=== PATIENT | female | born 1985 | race Caucasian/White ===

== ENCOUNTER → 2017-11-28 14:54 | Outpatient (CLI) | payer BC, SELFPAY ==
--- NOTE | 2017-11-28 15:03 | XR_ITS ---
EXAM: XR lumbar spine min 4V HISTORY: ITS.REASON: PARESTHESIA BILAT LEGS ORDERING PHYSICIAN: Abel Sanchez MD PATIENT AGE: 32 years COMPARISON: None FINDINGS: Normal alignment. No fracture or dislocation. No lytic or blastic change. No significant degenerative change. The disc spaces are preserved. IMPRESSION: Negative lumbar spine
== END ==
PROVIDERS: PCP Family Medicine; Visit Provider Family Medicine
DX: R20.2 Paresthesia of skin (principal)
CPT/HCPCS: 72110

== ENCOUNTER 2020-05-09 11:54 | Emergency (ER) | payer BC, SELFPAY ==
[2020-05-09 11:55] VITALS: BP 129/68; PULSE 97; RESP 18; TEMP 36.6; O2SAT 97; BMI 24.2
--- NOTE | 2020-05-09 12:40 | PC.NURSE ---
cleaned pts left elbow for the dr to stitch it
--- NOTE | 2020-05-09 12:50 | HMH.EDWNDL ---
ED Disposition Clinical Impression: Laceration Disposition: Home, Self-Care Condition on Discharge: Good Instructions: DI for Laceration Repair Referrals: Provider,Referral, [Primary Care Provider] - - Critical Care Critical Care Time: No Attestation: On 05/09/20, the high probability of a clinically significant, sudden or life threatening deterioration of the following system(s) required my full and direct attention, intervention and personal management. The time I documented below is in addition to time spent performing reported procedures but includes the following listed in this critical care notation. Medical Decision Making - Medical Records Medical records reviewed: Yes: I reviewed the patient's medical records. - Louie Inquiry Pt receiving controlled substance: No Vital Signs: 05/09/20 11:55 Temperature 97.9 F Temperature Source Oral Pulse Rate [Right Radial] 97 H Respiratory Rate 18 Blood Pressure [Right Arm] 129/68 Blood Pressure Mean [Right Arm] 88 Blood Pressure Source [Right Arm] Automatic Cuff Blood Pressure Position [Right Arm] Sitting 02 Sat by Pulse Oximetry 97 Oxygen Delivery Method Room Air - Lab Data Lab results reviewed: Yes: I reviewed the patient's lab results. Wound/Laceration HPI - General Chief Complaint: Wound/Laceration Stated Complaint: Stitches Time Seen by Provider: 05/09/20 12:51 Mode of Arrival: Ambulatory Source of Information: Patient Limitations: No Limitations Description of Symptoms (Recalled from ER Triage Doc. by RN): PT PRESENTS WITH LAC TO LT ELBOW. PT REPORTS THAT SHE FELL INTO HER GLASS CABINET - History of Present Illness HPI narrative: 35-year-old female cut her elbow on the corner of a cabinet. This took place just prior to arrival.Patient denies any recent cough or shortness of breath, patient denies any sore throat or headache, patient denies any loss of taste or smell, patient denies any malaise or fatigue, patient denies any abdominal pain nausea vomiting or diarrhea. [facility] History - Hepatitis A Screen Drug use history?: No High risk sexual behaviors?: No History of sexually transmitted infection?: No Currently employed?: No Childcare worker?: No Do you have indoor plumbing?: Yes Do you have electricity?: Yes Attestation statement:: This patient has been screened for Hepatitis A risk factors. I have reviewed the patient's past medical history: Yes Medical History: Denies:: Diabetes Mellitus Type 1, Diabetes Mellitus Type 2 - Social History Smoking Status: Current every day smoker Tobacco Type: cigarettes # Packs/Day (cigarettes): 1 Alcohol Intake: current Alcohol Intake Frequency:: holidays/special occasions only Occupational Status: other ROS Obtained: Yes All systems reviewed & no additional complaints - Constitutional Constitutional: Reports system reviewed and no additional complaints, except as docu - Eyes Eyes: Reports system reviewed and no additional complaints, except as docu - ENT Ears, Nose, Mouth, and Throat: Reports system reviewed and no additional complaints, except as docu - Cardiovascular Cardiovascular: Reports system reviewed and no additional complaints, except as docu - Respiratory Respiratory: Yes system reviewed and no additional complaints, except as docu - Gastrointestinal Gastrointestingal: Reports: system reviewed and no additional complaints, except as docu - Genitourinary Male Genitourinary: Reports system reviewed and no additional complaints, except as docu Female Genitourinary: Reports system reviewed and no additional complaints, except as docu - Musculoskeletal Musculoskeletal: Reports system reviewed and no additional complaints, except as docu - Integumentary/Breasts Skin/Breast: Reports system reviewed and no additional complaints, except as docu - Neurologic Neurologic: Reports system reviewed and no additional complaints, except as docu - Endocrine Endocrine: Re
[2020-05-09 13:29] VITALS: BP 112/74; PULSE 78; RESP 16; TEMP 36.6; O2SAT 98
== END 2020-05-09 13:30 | disposition home or self-care (01) ==
PROVIDERS: Emergency Provider Family Medicine
DX: S51.012A Laceration without foreign body of left elbow, initial encounter (principal); W01.190A Fall on same level from slipping, tripping and stumbling with subsequent striking against furniture, initial encounter; Y92.019 Unspecified place in single-family (private) house as the place of occurrence of the external cause
CPT/HCPCS: 12002; 99282

== ENCOUNTER 2020-07-08 16:43 | Emergency (ER) | payer BC, SELFPAY ==
[2020-07-08 16:52] VITALS: BP 124/70; PULSE 83; RESP 18; TEMP 36.8; O2SAT 99; BMI 24.2
[2020-07-08 17:03] VITALS: BP 124/70; PULSE 83; RESP 18; TEMP 36.8; O2SAT 99; BMI 24.0
--- NOTE | 2020-07-08 17:04 | HMH.EDUTC ---
[facility] [place]ression: Strep [place] Disposition: Home, Self-Care Condition on Discharge: Good Instructions: Strep Throat (Alternative Therapy), Strep Throat, DI for Strep Throat, Amoxicillin Additional Instructions: *Monitor Temp, Over the counter Motrin or Tylenol as directed/as needed Tylenol every 4 hours and Motrin every 6 hours (as long as your family doctor has told you that you can take it) for fever or pain. and straight to ER if unable to lower temp less than 101.0 after medication given *Warm salt water gargles may help to soothe the throat *Throat Lozenges *Warm fluids like tea with honey may help to soothe the throat *Sleep elevated *Humidifier/Vaporizer *If you did not take Penicillin shot or was unable to, start taking antibiotic immediately and make sure that you take it for the FULL length of time although you should start to feel better in 24-48 hours *change toothbrush and toothpaste 24-48 hours after starting to take antibiotics so you do not reinfect yourself Monitor Temp. Tylenol and/or Ibuprofen as needed. ER if fever is no less than 101 despite alternating Tylenol and Ibuprofen * Encourage fluids, water, Gatorade, powerade, pedialyte if /toddler/or child *Cold fluids, popsicles and ice cream may feel good on his throat Follow up IMMEDIATELY for new or worsening symptoms or no Noticeable improvement over the next 48-72 hours. 911 for difficulty breathing or swallowing Prescriptions: Amoxicillin [Amoxicillin 500mg Cap] 500 mg PO BID #20 cap Transmission Status: Sent to [facility] Fluticasone Propionate [Flonase 50mcg nasal spray 16gm] 1 - 2 spr NS DAILY #1 bottle Transmission Status: Sent to [facility] Referrals: PCP,No [Primary Care Provider] - As needed Time of Disposition: 17:13 Medical Decision Making - Louie Inquiry Pt receiving controlled substance: No Louie was queried for this patient: No Vital Signs: 07/08/20 16:52 07/08/20 17:03 Temperature 98.3 F 98.3 F Temperature Source Oral Oral Pulse Rate [Left Brachial] 83 83 Respiratory Rate 18 18 Blood Pressure [Left Arm] 124/70 124/70 Blood Pressure Mean [Left Arm] 88 88 Blood Pressure Source [Left Arm] Automatic Cuff Automatic Cuff Blood Pressure Position [Left Arm] Sitting Sitting 02 Sat by Pulse Oximetry 99 99 Oxygen Delivery Method Room Air Room Air - Lab Data Lab results reviewed: Yes: I reviewed the patient's lab results. Lab Results 07/08/20 17:05: Strep Scn Rapid [facility] Positive [place] [facility] [place] - General Stated complaint: Possible strep or tonsilitis Time Seen by Provider: 07/08/20 17:04 Mode of Arrival: Ambulatory Source of Information: Patient Limitations: No Limitations Description of Symptoms (Recalled from Triage Doc. by RN): PATIENT C/O RIGHT EAR PAIN AND SORE THROAT SINCE SATURDAY. DENIES FEVER OR ANY OTHER SYMPTOMS - History of Present Illness Provider Complaint: Patient states that she has been having sore throat and noticed that she had white blister like lesions all over the back of her throat States that she has had strep before and feels like it did when she had it before States that also she has had peritonsilar abscess also and was worried that she may have that again States that she has also been having pain and pressure like feeling in her right ear that has continued to get worse and worried that she may have an ear infection too - Related Data Previous Rx's Medication Instructions Recorded Amoxicillin [Amoxicillin 500mg 500 mg PO BID #20 cap 07/08/20 Cap] Fluticasone Propionate [Flonase 1 - 2 spr NS DAILY #1 bottle 07/08/20 50mcg nasal spray 16gm] Allergies Allergy/AdvReac Type Severity Reaction Status Date / Time No Known Allergies Allergy Verified 07/08/20 17:07 [facility] History - Hepatitis A Screen Attestation statement:: This patient has been screened for Hepatitis A risk factors. I have reviewed th
[2020-07-08 17:05] LABS: UTC Strep Screen (Rapid) Positive (Negative)
[2020-07-08 17:16] VITALS: BP 124/70; PULSE 83; RESP 18; TEMP 36.8; O2SAT 99
== END 2020-07-08 17:20 | disposition home or self-care (01) ==
PROVIDERS: Emergency Provider Nurse Practitioner
DX: J02.0 Streptococcal pharyngitis (principal); F17.210 Nicotine dependence, cigarettes, uncomplicated
CPT/HCPCS: 87880; 99201

== ENCOUNTER 2020-07-18 13:54 | Emergency (ER) | payer BC, SELFPAY ==
[2020-07-18 14:01] VITALS: BP 146/94; PULSE 95; RESP 17; TEMP 36.7; O2SAT 98; BMI 24.2
--- NOTE | 2020-07-18 14:24 | XR_ITS ---
PROCEDURE: XR WRIST LT MIN 3V CLINICAL INDICATION: FALL Posttraumatic pain COMPARISON: No exams were available for comparison FINDINGS: No fracture or dislocation. No lytic or blastic change. There is normal mineralization. The joint spaces are well-preserved. No significant degenerative/arthritic changes. No erosive changes evident. Other findings:None. IMPRESSION: No acute findings. Dictated by: Mahin Harp MD 07/18/2020 15:27 Mahin Harp MD in [place] 07/18/2020 15:27
[2020-07-18 14:28] VITALS: BP 146/94; PULSE 95; RESP 17; TEMP 36.7; O2SAT 98; BMI 24.0
--- NOTE | 2020-07-18 14:49 | HMH.EDUTC ---
[facility] Disposition Clinical Impression: Wrist sprain Qualifiers: Encounter type: initial encounter Laterality: left Qualified Code(s): S63.502A - Unspecified sprain of left wrist, initial encounter Disposition: Home, Self-Care Condition on Discharge: Good Instructions: How To Perform RICE (Rest, Ice, Compress, Elevate) Additional Instructions: *RICE, Rest the extremity, Ice 15-20 minutes 3-4 times daily, Compress- wear the rayshawn wrap as discussed as much as possible to help reduce swelling and pain, Elevate the extremity when at rest *Rayshawn wrap is for support and help control swelling, use it except in the shower. Be sure that is not to tight but not to loose either *Elevate when resting *Ibuprofen every 6-8 hours as needed for pain an inflammation. If need something more can take Tylenol in between doses of Ibuprofen to help Immediately follow up with your family doctor for new or worsening of symptoms, or no noticeable improvement over the next 3-5 days Referrals: PCP,No [Primary Care Provider] - As needed Nicolette Andrade MD [Physician] - As needed (Call office for appointment) Time of Disposition: 15:35 Medical Decision Making - Louie Inquiry Pt receiving controlled substance: No Louie was queried for this patient: No Vital Signs: 07/18/20 14:01 07/18/20 14:28 07/18/20 15:36 Temperature 98.1 F 98.1 F 98.1 F Temperature Source Oral Oral Pulse Rate 95 H Pulse Rate [Right Radial] 95 H 95 H Respiratory Rate 17 17 17 Blood Pressure 146/94 H Blood Pressure [Right Arm] 146/94 H 146/94 H Blood Pressure Mean [Right Arm] 111 111 Blood Pressure Source [Right Arm] Automatic Cuff Arterial Line Blood Pressure Position [Right Arm] Sitting 02 Sat by Pulse Oximetry 98 98 Oxygen Delivery Method Room Air Room Air Orders (Tests/Meds): ED MEDICATIONS Discontinued Medications Generic Name Dose Route Start Last Admin Trade Name Freq PRN Reason Stop Dose Admin Ibuprofen 800 mg 07/18/20 14:58 07/18/20 14:59 Motrin 400mg Tablet PO 07/18/20 14:59 800 mg ONCE ONE Administration - Radiology Data #1 Image(s): Wrist Image Reviewed: Yes I reviewed the patient's radiology image Preliminary Findings: No Fracture Seen [facility] HPI - General Stated complaint: ao 07/16/20 fell down stairs Time Seen by Provider: 07/18/20 14:49 Mode of Arrival: Ambulatory Source of Information: Patient Limitations: No Limitations Description of Symptoms (Recalled from Triage Doc. by RN): PATIENT C/O INJURY TO LEFT WRIST AFTER FALLING DOWN STAIRS HEENT Symptoms (Recalled from RN notes): No Resp Symptoms (Recalled from RN notes): No Skin Symptoms (Recalled from RN notes): No MS Symptoms (Recalled from RN notes): Yes Functional Status (Recalled from RN notes): WNL - History of Present Illness Provider Complaint: Paitent states that she was walking down her stairs 2 days ago when she slipped and fell States that she stuck out her hand to try to catch herself states that ever since she has had some swelling and pain in her left wrist area States that she has been taking over the counter Tylenol but hasnt helped much and today it was still hurting so she came in to get it checked - Related Data Allergies Allergy/AdvReac Type Severity Reaction Status Date / Time No Known Allergies Allergy Verified 07/08/20 17:07 - Worker's Comp Is this a Worker's Comp case?: No [facility] History - Hepatitis A Screen Drug use history?: No High risk sexual behaviors?: No History of sexually transmitted infection?: No Currently employed?: No Childcare worker?: No Do you have indoor plumbing?: Yes Do you have electricity?: Yes Attestation statement:: This patient has been screened for Hepatitis A risk factors. I have reviewed the patient's past medical history: Yes Medical History: Denies:: Diabetes Mellitus Type 1, Diabetes Mellitus Type 2 - Social History Smoking Status: Current every day smoker Tobacco Type: cigarett
[2020-07-18 15:36] VITALS: BP 146/94; PULSE 95; RESP 17; TEMP 36.7; O2SAT 98
== END 2020-07-18 15:40 | disposition home or self-care (01) ==
PROVIDERS: Emergency Provider Nurse Practitioner
DX: S63.502A Unspecified sprain of left wrist, initial encounter (principal); W10.9XXA Fall (on) (from) unspecified stairs and steps, initial encounter; Y92.019 Unspecified place in single-family (private) house as the place of occurrence of the external cause; F17.210 Nicotine dependence, cigarettes, uncomplicated
CPT/HCPCS: 29125; 73110; 99202

== ENCOUNTER 2020-12-11 14:21 | Emergency (ER) | payer BC, SELFPAY ==
[2020-12-11 14:25] VITALS: BP 124/88; PULSE 82; RESP 18; TEMP 37; O2SAT 98; BMI 25.2
[2020-12-11 14:57] LABS: UTC Influenza A Antigen Negative (Negative); UTC Influenza B Antigen Negative (Negative)
--- NOTE | 2020-12-11 15:05 | HMH.EDUTC ---
[facility] [place]: Exposure to COVID-19 virus Disposition: Home, Self-Care Condition on Discharge: Good Instructions: DI for COVID-19 (Suspected or Confirmed ), Coronavirus Disease 2019, Preventing the Spread of Coronavirus Discharge Instructions Additional Instructions: *Monitor Temp, Over the counter Motrin or Tylenol as directed/as needed Tylenol every 4 hours and Motrin every 6 hours (as long as your family doctor has told you that you can take it) for fever or pain. and straight to ER if unable to lower temp less than 101.0 after medication given *Warm salt water gargles may help to soothe the throat *Throat Lozenges *Warm fluids like tea with honey may help to soothe the throat *Sleep elevated *Humidifier/Vaporizer Follow up IMMEDIATELY for new or worsening symptoms or no Noticeable improvement over the next 48-72 hours. 911 for difficulty breathing or swallowing You were tested for today for COVID19 your test result should be back in the next 24-48 hours, you may call to the [facility] to see if your test results are back in the next 48 hours [phone] [facility] hours are 9am-9pm You was given a handout with instructions for Self Quarantine and Self isolation for while you wait on test results and what to do if they are positive If you are positive the Health Dept will be contacting you also Referrals: PCP,No [Primary Care Provider] - As needed Forms: Work/School Release Time of Disposition: 15:10 Medical Decision Making - Louie Inquiry Pt receiving controlled substance: No Louie was queried for this patient: No Vital Signs: 12/11/20 14:25 Temperature 98.6 F Temperature Source Oral Pulse Rate [Right Brachial] 82 Respiratory Rate 18 Blood Pressure [Right Arm] 124/88 Blood Pressure Mean [Right Arm] 100 Blood Pressure Source [Right Arm] Automatic Cuff Blood Pressure Position [Right Arm] Sitting 02 Sat by Pulse Oximetry 98 Oxygen Delivery Method Room Air - Lab Data Lab results reviewed: Yes: I reviewed the patient's lab results. Lab Results 12/11/20 14:56: Influenza Type A Ag Negative, Influenza Type B Ag Negative Orders (Tests/Meds): ORDERS Category Date Time Status Covid-19 Nasal PCR ([facility]) Routine Lab 12/11/20 14:41 [place] [facility] [place] - General Stated complaint: exposure,symtoms Time Seen by Provider: 12/11/20 15:06 Mode of Arrival: Ambulatory Source of Information: Patient Limitations: No Limitations Description of Symptoms (Recalled from Triage Doc. by RN): COVID TEST D/T EXPOSURE. C/O FATIGUE X 3 DAYS HEENT Symptoms (Recalled from RN notes): No Resp Symptoms (Recalled from RN notes): No Skin Symptoms (Recalled from RN notes): No MS Symptoms (Recalled from RN notes): No Functional Status (Recalled from RN notes): WNL - History of Present Illness Provider Complaint: Patient states that she was around someone about a week ago that has tested positive for COVID State that for the last 3 days she has been having body aches, feeling tired and chills States that she has been sleeping alot and over all not feeling well so she wanted to come in and get tested - Related Data Allergies Allergy/AdvReac Type Severity Reaction Status Date / Time No Known Allergies Allergy Verified 07/08/20 17:07 - Worker's Comp Is this a Worker's Comp case?: No [facility] History - Hepatitis A Screen Drug use history?: No High risk sexual behaviors?: No History of sexually transmitted infection?: No Currently employed?: No Childcare worker?: No Do you have indoor plumbing?: Yes Do you have electricity?: Yes Attestation statement:: This patient has been screened for Hepatitis A risk factors. I have reviewed the patient's past medical history: Yes Medical History: Denies:: Diabetes Mellitus Type 1, Diabetes Mellitus Type 2 - Social History Smoking Status: Current every day smoker Tobacco Type: cigarettes # Packs/Day (cigarettes): 1 Alcohol Intake: never Alcohol Intake
[2020-12-11 15:08] VITALS: BP 124/88; PULSE 82; RESP 18; TEMP 37; O2SAT 98
--- NOTE | 2020-12-11 20:42 | PC.NURSE ---
Pt notified of positive covid test result
== END 2020-12-11 15:10 | disposition home or self-care (01) ==
PROVIDERS: Emergency Provider Nurse Practitioner
DX: U07.1 COVID-19 (principal); R53.1 Weakness; F17.210 Nicotine dependence, cigarettes, uncomplicated
CPT/HCPCS: 87804; 99202; G0463; U0003

== ENCOUNTER 2021-08-18 19:12 | Emergency (ER) | payer BC, SELFPAY ==
[2021-08-18 19:38] VITALS: BP 123/83; PULSE 93; RESP 21; TEMP 36.8; O2SAT 100; BMI 27.7
--- NOTE | 2021-08-18 19:45 | HMH.EDUTC ---
[facility] [place] Clinical Impression: Viral syndrome, Encounter for laboratory testing for COVID-19 virus Disposition: Home, Self-Care Condition on Discharge: Good Instructions: DI for COVID-19 (Suspected or Confirmed ), Preventing the Spread of Coronavirus Discharge Instructions Additional Instructions: *Monitor Temp, Over the counter Motrin or Tylenol as directed/as needed Tylenol every 4 hours and Motrin every 6 hours (as long as your family doctor has told you that you can take it) for fever or pain. and straight to ER if unable to lower temp less than 101.0 after medication given Follow up IMMEDIATELY for new or worsening symptoms or no Noticeable improvement over the next 48-72 hours. 911 for difficulty breathing or swallowing You were tested for today for COVID19 your test result should be back in the next 24-48 hours, you was given handout for instructions on how to [facility] to see your results if you have trouble logging on you may call for your results You was given a handout with instructions for Self Quarantine and Self isolation for while you wait on test results and what to do if they are positive If you are positive the Health Dept will be contacting you also Make sure to take your Vitamins Vit. C Vit D and Zinc if you can take them Referrals: Provider,Referral, MD [Primary Care Provider] - As needed Forms: Work/School Release Time of Disposition: 19:47 Medical Decision Making - Louie Inquiry Pt receiving controlled substance: No Louie was queried for this patient: No Vital Signs: 08/18/21 19:38 Temperature 98.2 F Temperature Source Oral Pulse Rate [Left] 93 H Respiratory Rate 21 Blood Pressure [Right Arm] 123/83 Blood Pressure Mean [Right Arm] 96 02 Sat by Pulse Oximetry 100 Orders (Tests/Meds): ORDERS Category Date Time Status Covid-19 Nasal PCR ([facility]) Routine Lab 08/18/21 19:24 Ordered [facility] [place] HPI - General Stated complaint: covid test, weak,CARVAJAL,cough, vomiting,runny nose Time Seen by Provider: 08/18/21 19:45 Mode of Arrival: Ambulatory Source of Information: Patient Limitations: No Limitations Description of Symptoms (Recalled from Triage Doc. by RN): PT C/O N/V AND FATIGUE SINCE THIS AM. HEENT Symptoms (Recalled from RN notes): No Resp Symptoms (Recalled from RN notes): No Skin Symptoms (Recalled from RN notes): No MS Symptoms (Recalled from RN notes): No Functional Status (Recalled from RN notes): FATIGUE - History of Present Illness Provider Complaint: Patient states that she hasnt felt well all day and just wanted to lay around States that she had N/V this morning but that is better,, chills and body aches States that she wanted to get tested for COVID due to this is the way she felt last time she had COVID - Related Data Allergies Allergy/AdvReac Type Severity Reaction Status Date / Time No Known Allergies Allergy Verified 07/08/20 17:07 - Worker's Comp Is this a Worker's Comp case?: No [facility] History - Hepatitis A Screen Drug use history?: No High risk sexual behaviors?: No History of sexually transmitted infection?: No Currently employed?: No Childcare worker?: No Do you have indoor plumbing?: Yes Do you have electricity?: Yes Attestation statement:: This patient has been screened for Hepatitis A risk factors. I have reviewed the patient's past medical history: Yes Medical History: Denies:: Diabetes Mellitus Type 1, Diabetes Mellitus Type 2 - Social History Smoking Status: Current every day smoker Tobacco Type: cigarettes # Packs/Day (cigarettes): 1 Alcohol Intake: never Alcohol Intake Frequency:: holidays/special occasions only Occupational Status: other ROS Obtained: Yes All systems reviewed & no additional complaints, Yes Systems reviewed as appropriate & no additional complaints - Constitutional Constitutional: Reports system reviewed and no additional complaints, except as docu, Reports body ache, Reports chills,
[2021-08-18 19:52] VITALS: BP 123/83; PULSE 93; RESP 21; TEMP 36.8
== END 2021-08-18 20:02 | disposition home or self-care (01) ==
PROVIDERS: Emergency Provider Nurse Practitioner
DX: B34.9 Viral infection, unspecified (principal); Z20.822 Contact with and (suspected) exposure to COVID-19
CPT/HCPCS: 99202; C9803; G0463; U0003; U0005

== ENCOUNTER 2021-12-12 08:26 | Emergency (ER) | payer BC, SELFPAY ==
[2021-12-12 08:34] VITALS: PULSE 126; RESP 17; O2SAT 97; BMI 24.2
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
[2021-12-12 08:52] VITALS: BP 0/0; PULSE 126; RESP 17; TEMP -17.7; TEMP 0; O2SAT 97
== END 2021-12-12 08:53 ==
PROVIDERS: Emergency Provider Emergency Medicine
DX: S60.512A Abrasion of left hand, initial encounter (principal); S00.531A Contusion of lip, initial encounter; Y04.0XXA Assault by unarmed brawl or fight, initial encounter; Y92.019 Unspecified place in single-family (private) house as the place of occurrence of the external cause; F17.210 Nicotine dependence, cigarettes, uncomplicated
CPT/HCPCS: 99282

== ENCOUNTER 2022-02-02 09:02 | Emergency (ER) | payer BC, SELFPAY ==
[2022-02-02 09:10] VITALS: BP 129/84; PULSE 99; RESP 20; TEMP 36.6; O2SAT 96; BMI 24.2
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
[2022-02-02 10:03] VITALS: BP 129/84; PULSE 99; RESP 20; TEMP 36.6; O2SAT 96
== END 2022-02-02 10:11 | disposition home or self-care (01) ==
PROVIDERS: Emergency Provider Physician Assistant
DX: N76.4 Abscess of vulva (principal); M54.50 Low back pain, unspecified; F17.210 Nicotine dependence, cigarettes, uncomplicated; Z79.899 Other long term (current) drug therapy
CPT/HCPCS: 96372; 99213; G0463; J0696

== ENCOUNTER 2022-08-21 09:14 | Emergency (ER) | payer BC, SELFPAY ==
[2022-08-21 09:24] VITALS: BP 122/84; PULSE 78; RESP 16; TEMP 36.7; O2SAT 100; BMI 24.2
--- NOTE | 2022-08-21 09:47 | EXP.UTC ---
Discharge Plan Disposition Patient Disposition: Home, Self-Care Condition: Good Prescriptions Prescriptions: New benzonatate [benzonatate] 100 mg capsule 100 mg PO TIDP PRN (Reason: Cough) Qty: 30 0RF methylprednisolone 4 mg Tablets,Dose Pack 4 mg PO DIRECTED Qty: 21 0RF cefdinir 300 mg capsule 300 mg PO BID Qty: 20 0RF No Action sulfamethoxazole-trimethoprim 1 EACH tablet 1 each PO BID 10 Days Qty: 20 0RF cephalexin 500 MG capsule 500 mg PO Q6H 10 Days Qty: 40 0RF fluconazole 150 MG tablet 150 mg PO DAILY 5 Days Qty: 5 0RF Rx Instructions: Take if yeast infection symptoms develop from antibiotics Referrals Follow up/Referrals: Provider,Referral, MD [Primary Care Provider] - See instructions Activity Restrictions/Add. Instructions Additional Instructions/Restrictions: Drink plenty of fluids. Take tylenol or ibuprofen for pain or fever. Take the medications as directed. Follow up with your regular doctor. GO TO THE ER FOR ANY WORSENING SYMPTOMS Clinical Impressions Clinical Impression: Pharyngitis, Otitis media Instructions Patient Instructions: Middle Ear Infection, DI for Pharyngitis/Tonsillopharyngitis -- Adult Discharge ED Provider: Jann Alicea [facility] General Stated complaint: pain in ears, trouble hearing Mode of Arrival: Ambulatory Source of Information: Patient Limitations: No Limitations Time Seen by Provider: 08/21/22 09:47 Description of Symptoms (Recalled from Triage Doc. by RN): pt comes in with c/o bilateral ear pain. symptoms began a few days ago but last night and this am symptoms have gotten worse. HEENT Symptoms (Recalled from RN notes): Yes Resp Symptoms (Recalled from RN notes): No Skin Symptoms (Recalled from RN notes): No MS Symptoms (Recalled from RN notes): No Functional Status (Recalled from RN notes): n/a History of Present Illness Provider Complaint: She states that for the past 2 days she has had sore throat and bilateral ear pain. Related Data Previous Rx's Medication Instructions Recorded cephalexin 500 mg capsule 500 mg PO Q6H 10 days #40 caps 02/02/22 fluconazole 150 mg tablet 150 mg PO DAILY 5 days #5 tabs 02/02/22 sulfamethoxazole 800 1 each PO BID 10 days #20 tabs 02/02/22 mg-trimethoprim 160 mg tablet benzonatate 100 mg capsule 100 mg PO TIDP PRN Cough #30 caps 08/21/22 cefdinir 300 mg capsule 300 mg PO BID #20 caps 08/21/22 methylprednisolone 4 mg tablets in 4 mg PO DIRECTED #21 tabs 08/21/22 a dose pack Allergies Allergy/AdvReac Type Severity Reaction Status Date / Time No Known Allergies Allergy Verified 08/21/22 09:26 Worker's Comp Is this a Worker's Comp case?: No PFSH PFSH Social History Smoking Status: Current every day smoker tobacco type: cigarettes packs per day: 1 alcohol intake: current current occupational status: other Travel in the last 8 weeks: None ROS Obtained: Yes All systems reviewed & no additional complaints except as documented Constitutional Constitutional: Denies chills, Reports fever(s) and Reports poor appetite Eyes Eyes: Denies eye discharge ENT Ears, Nose, Mouth, and Throat: Denies ear discharge, Reports otalgia, Denies hearing loss, Denies sinus pain and Reports sore throat Cardiovascular Cardiovascular: Denies chest pain and Denies dyspnea Respiratory Respiratory: Denies chest congestion, Reports cough and Denies dyspnea Gastrointestinal Gastrointestingal: Denies abdominal pain, diarrhea, nausea or vomiting Musculoskeletal Musculoskeletal: Denies arthralgias Integumentary/Breasts Skin/Breast: Denies rash Physical Exam General General appearance: alert and in no apparent distress Head Head exam: atraumatic, normocephalic and normal inspection Eye Eye exam: Present normal appearance, PERRL and EOMI ENT ENT exam: Present mucous membranes moist and normal external ear exam Expanded ENT E
[2022-08-21 10:09] LABS: UTC Strep Screen (Rapid) Negative (Negative)
[2022-08-21 10:21] VITALS: BP 122/84; PULSE 78; RESP 16; TEMP 36.7
== END 2022-08-21 10:23 | disposition home or self-care (01) ==
PROVIDERS: Emergency Provider Nurse Practitioner Family
DX: H66.90 Otitis media, unspecified, unspecified ear (principal); J02.9 Acute pharyngitis, unspecified
CPT/HCPCS: 87880; 99212; G0463

== ENCOUNTER 2022-12-16 00:49 | Emergency (ER) | payer BC, SELFPAY ==
[2022-12-16 00:51] VITALS: BP 134/95; PULSE 115; RESP 18; TEMP 36.6; O2SAT 99; BMI 24.2
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
[2022-12-16 01:56] VITALS: BP 130/92; PULSE 105; RESP 18; TEMP 36.6; O2SAT 99
[2022-12-16 02:10] LABS: Urine Pregnancy, HCG Qual. Negative (Negative)
--- NOTE | 2022-12-16 02:33 | PC.NURSE ---
Addendum entered by Cristy Mejia RN 12/16/22 02:34: is aware. Original Note: pt refused to have lab draw. She did agree to a urine test so she could have a CT scan.
== END 2022-12-16 03:00 | disposition home or self-care (01) ==
PROVIDERS: Emergency Provider Emergency Medicine
DX: F17.210 Nicotine dependence, cigarettes, uncomplicated; S00.83XA Contusion of other part of head, initial encounter; Y04.0XXA Assault by unarmed brawl or fight, initial encounter
CPT/HCPCS: 70486; 81025; 99284

== ENCOUNTER 2023-01-14 20:17 | Observation (INO) | payer BC, SELFPAY ==
[2023-01-14 20:18] VITALS: BP 100/72; PULSE 88; RESP 16; TEMP 36.8; O2SAT 100; BMI 24.2
[2023-01-14 20:53] VITALS: BP 160/87; PULSE 84; RESP 16; O2SAT 100
--- NOTE | 2023-01-14 20:59 | HMH.EDABDPAI ---
Discharge Plan Disposition Patient Disposition: Admitted As Inpatient Chief Complaint: Abdominal Pain Clinical Impressions Clinical Impression: Pancreatitis Discharge ED Provider: Td (TIGIST)Lorenzo Abdominal Pain HPI General Chief Complaint: Abdominal Pain Stated Complaint: Sever stomach pain Time Seen by Provider: 01/14/23 20:59 Mode of Arrival: Ambulatory Source of Information: Patient and Medical Record Limitations: No Limitations Description of Symptoms (Recalled from ER Triage Doc. by RN): Pt c/o vomiting and epigastric pain that started around 3pm today. denies any diarrhea or any other symptoms History of Present Illness HPI narrative: acute onset of abd pain with nausea complaint: abdominal pain Onset (ago): hour(s) Consistency: constant Location: epigastric Severity: severe Associated symptoms: nausea and vomiting Related Data Previous Rx's Medication Instructions Recorded cephalexin 500 mg capsule 500 mg PO Q6H 10 days #40 caps 02/02/22 fluconazole 150 mg tablet 150 mg PO DAILY 5 days #5 tabs 02/02/22 sulfamethoxazole 800 1 each PO BID 10 days #20 tabs 02/02/22 mg-trimethoprim 160 mg tablet benzonatate 100 mg capsule 100 mg PO TIDP PRN Cough #30 caps 08/21/22 cefdinir 300 mg capsule 300 mg PO BID #20 caps 08/21/22 methylprednisolone 4 mg tablets in 4 mg PO DIRECTED #21 tabs 08/21/22 a dose pack Allergies Allergy/AdvReac Type Severity Reaction Status Date / Time No Known Allergies Allergy Verified 08/21/22 09:26 [facility] Disclaimer: The information contained in this section may have been updated after the patient was seen, as this information can be updated by other users. Social History Smoking Status: Current every day smoker tobacco type: cigarettes packs per day: 1 alcohol intake: current current occupational status: other Travel in the last 8 weeks: None ROS Obtained: Yes All systems reviewed & no additional complaints except as documented Physical Exam General General appearance: alert Head Head exam: normocephalic Eye Eye exam: Present PERRL and EOMI ENT ENT exam: Present mucous membranes moist Neck Neck exam: Present trachea midline Respiratory Respiratory exam: Absent respiratory distress Cardiovascular Cardiovascular exam: Present regular rate Abdominal Exam Abdominal exam: Present soft, tenderness and Mejia's sign; Absent guarding or rebound Abdominal tenderness: Present RUQ, epigastrium and moderate Extremities Exam Extremities exam: Present full ROM Neurological Exam Neurological exam: Present alert, oriented X3 and CN II-XII intact; Absent motor sensory deficit Skin Skin exam: Absent rash Medical Decision Making Medical Records Medical records reviewed: Yes I reviewed the patient's medical records. Louie Inquiry Pt receiving controlled substance: No Vital Signs: 01/14/23 20:18 01/14/23 20:53 01/14/23 22:14 Temperature 98.3 F Temperature Source Oral Pulse Rate 84 75 Pulse Rate [Right] 88 Respiratory Rate 16 16 16 Blood Pressure 160/87 H 138/98 H Blood Pressure [Right Arm] 100/72 L Blood Pressure Mean [Right Arm] 81 Blood Pressure Source Automatic Cuff Automatic Cuff Blood Pressure Source [Right Arm] Automatic Cuff Blood Pressure Position Sitting Sitting Blood Pressure Position [Right Arm] Sitting 02 Sat by Pulse Oximetry 100 100 100 Oxygen Delivery Method Room Air Room Air Room Air Lab Data Lab results reviewed: Yes I reviewed the patient's lab results. Lab Results 01/14/23 20:39: WBC 8.0, RBC 4.29, Hgb 15.7, Hct 46.4, MCV 108.2 H, MCH 36.6 H, MCHC 33.8, RDW 15.4, Plt Count 322, MPV 8.8, Neut % (Auto) 68.8, Lymph % (Auto) 21.3, [place] % (Auto) 6.7, Eos % (Auto) 1.2, Baso % (Auto) 1.9, Neut # (Auto) 5.5, Lymph # (Auto) 1.7, [place] # (Auto) 0.5, Eos # (Auto) 0.1, Baso # (Auto) 0.2 01/14/23 20:39: Sodium 135 L, Potassium 3.5, Chloride 103, Carbon Dioxide 23,
[2023-01-14 21:08] LABS: Chloride 103 mmol/L (98-107); Potassium 3.5 mmoL/L (3.5-5.1); Sodium 135 mmol/L (136-145)
[2023-01-14 21:10] LABS: Amylase 161 U/L (30-110)
[2023-01-14 21:11] LABS: Alanine Aminotransferase 49 U/L (12-78); Albumin Level 4.4 g/dl (3.5-5.0); Albumin/Globulin Ratio 1.3 (1.1-1.8); Alkaline Phosphatase 145 U/L (38-126); Anion Gap 12.5 mEq/L (5-15); Aspartate Amino Transferase 123 U/L (14-36); Bilirubin,Total 1.4 mg/dl (0.2-1.3); Blood Urea Nitrogen 9 mg/dl (7-17); Calcium 8.7 mg/dl (8.4-10.2); Carbon Dioxide 23 mmol/L (22.0-30.0); Creatinine Clearance Estimated 120 mL/min (50-200); Estimated Glomerular Filt Rate 95 ml/min (>60); GFR (African American) 115 ML/MIN (>60); Globulin 3.4 g/dL (1.3-3.2); Glucose 114 mg/dl (74-100); HCG Qualitative, Serum Negative (Negative); Total Protein,Serum 7.8 g/dl (6.3-8.2)
[2023-01-14 21:12] LABS: Lipase 692 U/L (23-300)
[2023-01-14 21:13] LABS: Basophils # 0.2 K/mm3 (0-0.2); Basophils % 1.9 % (0.1-2.0); Eosinophils # 0.1 K/mm3 (0.0-0.4); Eosinophils % 1.2 % (0.1-12.0); Hematocrit 46.4 % (37.0-47.0); Hemoglobin 15.7 g/dL (12.2-16.2); Lymphocytes # 1.7 K/mm3 (0.7-4.5); Lymphocytes % 21.3 % (10-50); Mean Corpuscular HGB Conc 33.8 g/dL (31.8-35.4); Mean Corpuscular Hemoglobin 36.6 pg (27.0-31.2); Mean Corpuscular Volume 108.2 fl (81-99); Mean Platelet Volume 8.8 fl (7.4-10.4); Monocytes # 0.5 K/mm3 (0.1-1.0); Monocytes % 6.7 % (1.7-9.3); Neutrophils # 5.5 K/mm3 (1.8-7.8); Neutrophils % 68.8 % (37.0-80.0); Platelet Count 322 K/mm3 (142-424); Red Blood Count 4.29 M/mm3 (4.20-5.40); Red Cell Distribution Width 15.4 % (11.5-17.5)
--- NOTE | 2023-01-14 21:14 | CT_ITS ---
PROCEDURE INFORMATION: Exam: CT Abdomen And Pelvis With Contrast Exam date and time: 01/14/2023 9:27 PM Age: 37 years old Clinical indication: Abdominal pain; Generalized; Additional info: Abd pain TECHNIQUE: Imaging protocol: Computed tomography of the abdomen and pelvis with contrast. Radiation optimization: All CT scans at this facility use at least one of these dose optimization techniques: automated exposure control; mA and/or kV adjustment per patient size (includes targeted exams where dose is matched to clinical indication); or iterative reconstruction. Contrast material: ISOVUE; Contrast volume: 75 ml; Contrast route: IV; REPORTING DATA: Count of CT and Cardiac NM exams in prior 12 months: This patient has received [address] and 0 known cardiac nuclear medicine studies in the 12 months prior to the current study. COMPARISON: CR [id number] XR lumbar spine min 4V 11/28/2017 3:18 PM FINDINGS: Liver: The liver is diffusely fatty in appearance. No focal hepatic abnormality evident. Gallbladder and bile ducts: Normal. No calcified stones. No ductal dilation. Pancreas: There is edema of the pancreatic head with small amount of adjacent fluid. No loculated peripancreatic fluid collection seen. Pancreatic enhancement appears normal. Spleen: Normal. No splenomegaly. Adrenal glands: Normal. No mass. Kidneys and ureters: Normal. No hydronephrosis. Stomach and bowel: Unremarkable. No obstruction. No mucosal thickening. Appendix: No evidence of appendicitis. Intraperitoneal space: Unremarkable. No free air. No significant fluid collection. Vasculature: Unremarkable. No abdominal aortic aneurysm. Lymph nodes: Unremarkable. No enlarged lymph nodes. Urinary bladder: Unremarkable as visualized. Reproductive: Unremarkable as visualized. Bones/joints: Unremarkable. No acute fracture. Soft tissues: There is a small fat containing umbilical hernia as well as a small midline ventral hernia above the umbilicus, also only containing fat. IMPRESSION: Findings of uncomplicated acute pancreatitis involving the pancreatic head. Fatty liver also noted.
--- NOTE | 2023-01-14 21:22 | PC.NURSE ---
Dr Appiah notified of critical lipase
--- NOTE | 2023-01-14 21:23 | PC.NURSE ---
pt to ct scan
--- NOTE | 2023-01-14 21:36 | PC.NURSE ---
Pt returned from CT scan. pt was able to provide urine sample at this time.
--- NOTE | 2023-01-14 21:42 | PC.NURSE ---
Updated pt and SO on POC and that we were waiting on CT results. No other needs at this time
--- NOTE | 2023-01-14 22:05 | PC.NURSE ---
Pt confirmed she has no family doctor. Dr. Appiah s/w Giuseppe Garza APRN for admission
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
[2023-01-14 22:12] LABS: Microscopic, Urine URINE MICROSCOPIC (MICROSCOPIC)
[2023-01-14 22:14] VITALS: BP 138/98; PULSE 75; RESP 16; O2SAT 100
[2023-01-14 22:14] LABS: Coronavirus 19, PCR Not Detected (NotDetected); Influenza A, PCR Not Detected (NotDetected); Influenza B, PCR Not Detected (NotDetected)
--- NOTE | 2023-01-14 22:14 | PC.NURSE ---
Hospitalist at bedside seeing patient
[2023-01-14 22:15] LABS: Chol/HDL Ratio 3.7 (1-3.5); Cholesterol 205 mg/dl (140-200); HDL Cholesterol 55 mg/dl (40-60); Triglycerides 247 mg/dl (30-150); VLDL Cholesterol 49 mg/dL (0-40)
[2023-01-14 22:15] LABS: Appearance,Urine CLEAR (Clear); Bilirubin,Urine Negative (Negative); Blood, Urine Negative (Negative); Glucose,Urine (UA) Negative (Negative); Ketones,Urine 2+ (Negative); Leukocyte Esterase,Urine Negative (Negative); Nitrate,Urine Negative (Negative); Protein,Urine TRACE (Negative); Specific Gravity, Urine 1.015 (1.005-1.030)
[2023-01-14 22:17] LABS: Color,Urine Dark Yellow (Yellow)
--- NOTE | 2023-01-14 22:26 | EXP.HP ---
History of Present Illness *Admission Date: 01/14/23 *Reason for visit:: Nausea, vomiting, abdominal Pain *History of present illness: Ms. Madrigal is a 37-year-old female with a past medical history of Hepatitis C, history of IVDU with opioids, Chronic Tobacco use and chronic alcohol use. She presents to [facility] due to a week history of vomiting on and off associated with severe upper quadrant and back pain today associated with intense vomiting. In the ER, the patient underwent a serum HCG that was negative, CT of the abdomen and pelvis that showed edema around the head of the pancreas and a small amount of adjacent fluid, WBC was normal at 8.0, Lipase was elevated at 692, Total Bili was 1.4 and AST was 123. The patient admits to drinking vodka and beers around 4 times weekly she reports a pint may last her 1 week. She denies any history of DT's with cessation. The patient will be admitted with initial impression: Acute Pancreatitis, she will be made NPO, given IV fluids, antiemetic and analgesics. US of the RUQ will be ordered for the am and lipase will be trended. The plan of care was discussed with the patient and her significant other on admission. Both verbalized understanding and agreement with the plan of care. [facility] Disclaimer: The information contained in this section may have been updated after the patient was seen, as this information can be updated by other users. Medical History AA (alcohol abuse) Hepatitis C IVDU (intravenous drug user) Social History (Updated 01/14/23 @ 23:43 by Justen Humphries RN) Smoking Status: Current every day smoker tobacco type: cigarettes packs per day: 1 alcohol intake: current current occupational status: other Travel in the last 8 weeks: None Review of Systems Review of Systems Review of systems:: pertinent systems reviewed and negative unless documented below Constitutional Constitutional: Reports system reviewed and no additional complaints, except as documented Eyes Eyes: Reports system reviewed and no additional complaints, except as documented ENT Ears, Nose, Mouth, and Throat: Reports system reviewed and no additional complaints, except as documented *Cardiovascular Cardiovascular: Reports system reviewed and no additional complaints, except as documented *Respiratory Respiratory: Reports system reviewed and no additional complaints, except as documented *Gastrointestinal Gastrointestinal: Reports abdominal pain, Reports heartburn, Reports nausea and Reports vomiting *Genitourinary Genitourinary: Reports system reviewed and no additional complaints, except as documented *Musculoskeletal Musculoskeletal: Reports system reviewed and no additional complaints, except as documented Integumentary/Breasts Skin/Breast: Reports system reviewed and no additional complaints, except as documented *Neurologic Neurologic: Reports system reviewed and no additional complaints, except as documented Psychiatric Psychiatric: Reports system reviewed and no additional complaints, except as documented Endocrine Endocrine: Reports system reviewed and no additional complaints, except as documented Hematologic/Lymphatic Hematologic/Lymphatic: Reports system reviewed and no additional complaints, except as documented Allergic/Immunologic Allergic/Immunologic: Reports system reviewed and no additional complaints, except as documented Meds Home Medications and Allergies New Prescriptions to Start Prescriptions: Allergies Allergy/AdvReac Type Severity Reaction Status Date / Time No Known Allergies Allergy Verified 08/21/22 09:26 Exam Data for Last 24 hours Vital signs and Labs for Last 24 Hours: Temp Pulse Resp BP Pulse Ox 98.3 F 75 16 138/98 H 100 01/14/23 20:18 01/14/23 22:14 01/14/23 22:14 01/14/23 22:14 01/14/23 22:14 Laboratory Results - last 24 hr 01/14/23 20:39: WBC 8.0, RBC 4.29, Hgb 15.7, Hct 46.4, MCV 108.2 H, MCH
[2023-01-14 22:32] LABS: Direct LDL Cholesterol 119.09 mg/dL (100-129)
[2023-01-14 22:37] VITALS: BP 138/90; PULSE 67; RESP 16; TEMP 36.8; O2SAT 98
[2023-01-14 22:37] LABS: WBC,Urine Occasional #/hpf (0-3)
--- NOTE | 2023-01-14 22:40 | PC.NURSE ---
Report called at this time.
--- NOTE | 2023-01-14 22:43 | PC.NURSE ---
2210 patient admitted to [facility] with dx of pancreatitis to service of Dr. Cabrera.
--- NOTE | 2023-01-14 22:48 | PC.NURSE ---
pt arrived to floor at this time
[2023-01-14 22:50] LABS: Amphetamine/Metha Screen,Urine Negative ng/ml (<1000)
[2023-01-14 22:51] LABS: Barbiturates Screen,Urine Negative ng/ml (<200); Benzodiazepines Screen,Urine Negative ng/ml (<200)
[2023-01-14 22:52] LABS: Cannabinoid Screen,Urine Positive ng/ml (<50)
[2023-01-14 22:53] LABS: Cocaine Screen,Urine Negative ng/ml (<300); Methadone Screen,Urine Negative ng/ml (<300)
[2023-01-14 22:54] LABS: Opiate Screen,Urine Positive ng/ml (<300); Phencyclidine Screen,Urine Negative ng/ml (<25)
[2023-01-14 23:06] VITALS: BP 140/82; PULSE 67; RESP 18; TEMP 36.5; O2SAT 100; BMI 27.4
[2023-01-15] VITALS: BP 140/82; PULSE 67; RESP 18; TEMP 36.5; O2SAT 100
[2023-01-15 00:09] VITALS: O2SAT 98
[2023-01-15 04:00] VITALS: BP 141/93; PULSE 69; RESP 18; TEMP 37.1; O2SAT 99; BMI 27.3
--- NOTE | 2023-01-15 05:52 | PC.NURSE ---
Pt. aox4 and has had nausea and vomiting since 15:00 yesterday. She got one breakthrough dose of morphine and ibuprofen this am.
--- NOTE | 2023-01-15 06:48 | PC.NURSE ---
PT LEFT FLOOR AMA AT THIS TIME
--- NOTE | 2023-01-15 06:51 | PC.NURSE ---
Pt. decided to leave AMA after speaking to Giuseppe Herrera DNP and wasn't given permission to leave the floor to smoke.
--- NOTE | 2023-01-15 06:52 | EXP.DC.SUM ---
General Admission date:: 01/14/23 Discharge date: 01/15/23 HPI HPI HPI: Ms. Madrigal is a 37-year-old female with a past medical history of Hepatitis C, history of IVDU with opioids, Chronic Tobacco use and chronic alcohol use. She presents to [facility] due to a week history of vomiting on and off associated with severe upper quadrant and back pain today associated with intense vomiting. In the ER, the patient underwent a serum HCG that was negative, CT of the abdomen and pelvis that showed edema around the head of the pancreas and a small amount of adjacent fluid, WBC was normal at 8.0, Lipase was elevated at 692, Total Bili was 1.4 and AST was 123. The patient admits to drinking vodka and beers around 4 times weekly she reports a pint may last her 1 week. She denies any history of DT's with cessation. The patient will be admitted with initial impression: Acute Pancreatitis, she will be made NPO, given IV fluids, antiemetic and analgesics. US of the RUQ will be ordered for the am and lipase will be trended. The plan of care was discussed with the patient and her significant other on admission. Both verbalized understanding and agreement with the plan of care. Hospital Course Hospital Course Hospital Course: Ms. Madrigal is a 37-year-old female admitted to the facility on 01/14/23 due to acute abdominal pain, nausea, vomiting. Imaging and Labs were consistent with Acute Pancreatitis. The patient was admitted, given analgesics, antiemetics, fluids and made NPO. She has a history of chronic alcohol use, history of past IVDU and chronic tobacco use. She was informed of the need for cessation and given a NRT overnight. paleology teacher of 01/15 the patient unhooked herself from fluids and stated that she wanted to go outside and smoke. She was informed that it is a non-smoking campus and this was not allowed, despite trying to get the patient to stay, she decided to leave AMA. She was informed if her symptoms return or worsen to come back through an ER for evaluation. She verbalized understanding. Unable to round on patient as she left AMA. Discussed case with nurse practitioner. Agree with care during admission. Exam Data for Last 24 hours Vital signs and Labs for Last 24 Hours: Temp Pulse Resp BP Pulse Ox 98.7 F 69 18 141/93 H 99 01/15/23 04:00 01/15/23 04:00 01/15/23 04:00 01/15/23 04:00 01/15/23 04:00 Laboratory Results - last 24 hr 01/14/23 20:39: WBC 8.0, RBC 4.29, Hgb 15.7, Hct 46.4, MCV 108.2 H, MCH 36.6 H, MCHC 33.8, RDW 15.4, Plt Count 322, MPV 8.8, Neut % (Auto) 68.8, Lymph % (Auto) 21.3, [place] % (Auto) 6.7, Eos % (Auto) 1.2, Baso % (Auto) 1.9, Neut # (Auto) 5.5, Lymph # (Auto) 1.7, [place] # (Auto) 0.5, Eos # (Auto) 0.1, Baso # (Auto) 0.2 01/14/23 20:39: Sodium 135 L, Potassium 3.5, Chloride 103, Carbon Dioxide 23, Anion Gap 12.5, BUN 9, Creatinine 0.70, Estimated Creat Clear 120, Estimated GFR 95, Est GFR ( Amer) 115, Glucose 114 H, Calcium 8.7, Total Bilirubin 1.4 H, AST 123 H, ALT 49, Alkaline Phosphatase 145 H, Total Protein 7.8, Albumin 4.4, Globulin 3.4 H, Albumin/Globulin Ratio 1.3, Amylase 161 H, Lipase 692 H 01/14/23 20:39: Serum HCG, Qual Negative 01/14/23 20:39: Triglycerides 247 H, Cholesterol 205 H, LDL Cholesterol Direct 119.09, VLDL Cholesterol 49 H, HDL Cholesterol 55, Cholesterol/HDL Ratio 3.7 H 01/14/23 21:36: Urine Color Dark yellow, Urine Appearance Clear, Urine pH 7.0, Ur Specific [place] 1.015, Urine Protein Trace, Urine Glucose (UA) Negative, Urine Ketones 2+, Urine Blood Negative, Urine Nitrate Negative, Urine Bilirubin Negative, Urine Urobilinogen 1.0, Ur Leukocyte Esterase Negative, Urine RBC None, Urine WBC Occasional, Ur Squamous Epith Cells 10-20, Urine Bacteria None 01/14/23 21:36: Urine Opiates Screen Positive H, Urine Methadone Screen Negative, Ur Barbituates Screen Negative, Ur Phencyclidine Scrn Negative, Ur Amphetamines Screen Negative, U Benzodiazepines Scrn Ne
== END 2023-01-15 06:30 | disposition left against medical advice (07) ==
LOC: ER 20:33 → 2ND 22:15
PROVIDERS: Nurse Practitioner Family; Admitting Provider Internal Medicine Adolescent Medicine; Emergency Provider Emergency Medicine; Visit Provider Internal Medicine Adolescent Medicine
DX: K85.90 Acute pancreatitis without necrosis or infection, unspecified (principal); F17.210 Nicotine dependence, cigarettes, uncomplicated; Z20.822 Contact with and (suspected) exposure to COVID-19; B19.20 Unspecified viral hepatitis C without hepatic coma; F12.20 Cannabis dependence, uncomplicated; F11.20 Opioid dependence, uncomplicated; F10.20 Alcohol dependence, uncomplicated
CPT/HCPCS: 74177; 80053; 80061; 80305; 81001; 82150; 83690; 84703; 85025; 99285; C9803; G0378; J2405; Q9967; U0003; U0005

== ENCOUNTER 2023-05-02 21:02 | Emergency (ER) | payer BC, SELFPAY ==
[2023-05-02 21:03] VITALS: BP 117/76; PULSE 74; RESP 16; TEMP 36.6; O2SAT 95; BMI 26.6
[2023-05-02 21:06] VITALS: BMI 26.6
--- NOTE | 2023-05-02 21:11 | ECG_ITS ---
APPROVED REPORT Exam: Resting ECG HR:75 bpm ECG Measurements Heart Rate 75 AXES MT 145 P 59 QRSd 90 QRS 78 QT 407 T 3 QTc 435 Conclusion SINUS RHYTHM NONSPECIFIC T-WAVE ABNORMALITY BORDERLINE ECG UNCONFIRMED REPORT Electronically signed by : Mike Rodriguez MD 05/03/2023 16:19:05
--- NOTE | 2023-05-02 21:20 | PC.NURSE ---
House notified for psych sitter
--- NOTE | 2023-05-02 21:24 | PC.NURSE ---
Poison control contacted and spoke to February. Labs and supportive care. Observation 4-6 hours from time of ingestion.
[2023-05-02 21:25] LABS: Basophils # 0.1 K/mm3 (0-0.2); Basophils % 0.6 % (0.1-2.0); Eosinophils # 0.1 K/mm3 (0.0-0.4); Eosinophils % 0.7 % (0.1-12.0); Hematocrit 43.6 % (37.0-47.0); Hemoglobin 14.4 g/dL (12.2-16.2); Lymphocytes # 4.2 K/mm3 (0.7-4.5); Lymphocytes % 46.4 % (10-50); Mean Corpuscular HGB Conc 33.1 g/dL (31.8-35.4); Mean Corpuscular Volume 105.9 fl (81-99); Mean Platelet Volume 7.8 fl (7.4-10.4); Monocytes # 0.6 K/mm3 (0.1-1.0); Monocytes % 7.1 % (1.7-9.3); Neutrophils # 4.1 K/mm3 (1.8-7.8); Neutrophils % 45.2 % (37.0-80.0); Platelet Count 445 K/mm3 (142-424); Red Blood Count 4.12 M/mm3 (4.20-5.40); Red Cell Distribution Width 16.8 % (11.5-17.5)
[2023-05-02 21:33] LABS: Coronavirus 19, PCR Not Detected (NotDetected); Influenza A, PCR Not Detected (NotDetected); Influenza B, PCR Not Detected (NotDetected)
[2023-05-02 21:33] LABS: Acetaminophen < 10 ug/ml (10-30); Alanine Aminotransferase 32 U/L (12-78); Albumin Level 4.8 g/dl (3.5-5.0); Albumin/Globulin Ratio 1.4 (1.1-1.8); Alkaline Phosphatase 66 U/L (38-126); Anion Gap 19.2 mEq/L (5-15); Aspartate Amino Transferase 38 U/L (14-36); Bilirubin,Total 0.5 mg/dl (0.2-1.3); Blood Urea Nitrogen 6 mg/dl (7-17); Calcium 8.8 mg/dl (8.4-10.2); Carbon Dioxide 20 mmol/L (22.0-30.0); Chloride 108 mmol/L (98-107); Creatinine Clearance Estimated 125 mL/min (50-200); Estimated Glomerular Filt Rate 81 ml/min (>60); GFR (African American) 98 ML/MIN (>60); Globulin 3.5 g/dL (1.3-3.2); Glucose 122 mg/dl (74-100); Potassium 3.2 mmoL/L (3.5-5.1); Salicylate < 1.0 mg/dL (2.0-20.0); Sodium 144 mmol/L (136-145); Total Protein,Serum 8.3 g/dl (6.3-8.2)
--- NOTE | 2023-05-02 21:35 | HMH.EDOD ---
Discharge Plan Disposition Patient Disposition: Home, Self-Care Chief Complaint: Overdose Referrals Follow up/Referrals: Provider,Referral, MD [Primary Care Provider] - See instructions Renetta Carrera APRN [Nurse Practitioner] - See instructions Clinical Impressions Clinical Impression: Blood-alcohol level elevation, Overdose Instructions Patient Instructions: DI for Drug Overdose in Adults Discharge ED Provider: Td (ED)Lorenzo Overdose HPI General Chief Complaint: Overdose Stated Complaint: Overdose Time Seen by Provider: 05/02/23 21:20 Mode of Arrival: EMS Source of Information: Patient, EMS and Medical Record Limitations: No Limitations Description of Symptoms (Recalled from ER Triage Doc. by RN): 38 F presents via EMS after significant other called out for unresponsive and took handful of medicine. Patient apparently took 15 or 16 5mg Buspar after becoming very upset. EMS arrived to patient with pinpoint pupils. She was given 2mg IVP Narcan with positive response. Patient arrives here back into lethargic state. Patient smells of ETOH. History of Present Illness HPI Narrative: pt was upset and took 4 buspar and had been drinking today - pt denied self- harm MD complaint: accidental overdose Onset (ago): hour(s) Timing confirmed by: spouse Context: Intentional Overdose: relationship problems Context: Accidental Overdose: was drinking then took pills Treatments Prior to Arrival: narcan Related Data Allergies Allergy/AdvReac Type Severity Reaction Status Date / Time No Known Allergies Allergy Verified 08/21/22 09:26 [facility] Disclaimer: The information contained in this section may have been updated after the patient was seen, as this information can be updated by other users. Medical History AA (alcohol abuse) Hepatitis C IVDU (intravenous drug user) Social History (Updated 01/14/23 @ 23:43 by Justen Humphries RN) Smoking Status: Current every day smoker tobacco type: cigarettes packs per day: 1 alcohol intake: current current occupational status: other Travel in the last 8 weeks: None ROS Obtained: Yes All systems reviewed & no additional complaints except as documented Physical Exam General General appearance: alert Head Head exam: normocephalic Eye Eye exam: Present PERRL and EOMI; Absent nystagmus ENT ENT exam: Present mucous membranes moist Neck Neck exam: Present trachea midline Respiratory Respiratory exam: Present normal lung sounds bilaterally; Absent respiratory distress Cardiovascular Cardiovascular exam: Present regular rate Abdominal Exam Abdominal exam: Present soft Extremities Exam Extremities exam: Present full ROM Neurological Exam Neurological exam: Present alert, oriented X3 and CN II-XII intact; Absent motor sensory deficit Psychiatric Psychiatric exam: Present normal affect; Absent suicidal ideation Expanded Psychiatric Exam Expanded psych exam: Absent delusional or uncooperative Skin Skin exam: Absent rash Medical Decision Making Medical Records Medical records reviewed: Yes I reviewed the patient's medical records. Louie Inquiry Pt receiving controlled substance: No Vital Signs: 05/02/23 21:03 05/02/23 23:43 Temperature 98 F 98 F Temperature Source Tympanic Pulse Rate 78 Pulse Rate [Left] 74 Respiratory Rate 16 16 Blood Pressure 115/79 Blood Pressure [Right Arm] 117/76 Blood Pressure Mean [Right Arm] 89 Blood Pressure Source [Right Arm] Automatic Cuff Blood Pressure Position [Right Arm] Sitting 02 Sat by Pulse Oximetry 95 Oxygen Delivery Method Room Air Lab Data Lab results reviewed: Yes I reviewed the patient's lab results. Lab Results 05/02/23 21:16: WBC 9.0, RBC 4.12 L, Hgb 14.4, Hct 43.6, MCV 105.9 H, MCH 35.0 H, MCHC 33.1, RDW 16.8, Plt Count 445 H, MPV 7.8, Neut % (Auto) 45.2, Lymph % (Auto) 46.4, [place] % (Auto) 7.1, Eos % (Auto) 0.7, Baso % (Auto) 0.6, Neut # (Auto) 4.1, Lymph # (Auto) 4.2, Mon
[2023-05-02 21:40] LABS: Ethyl Alcohol 298 mg/dl (0-10)
[2023-05-02 21:45] LABS: Troponin I < 0.01 ng/ml (0.00-0.034)
--- NOTE | 2023-05-02 22:43 | PC.NURSE ---
Patients significant other is at the bedside and states that he doesn't believe that the patient took the rx medications to intentionally hurt herself. MD questioned if s/o feels comfortable taking the patient home and having her follow up with mental health as an outpatient and s/o states that he does feel comfortable with that. Md notified
[2023-05-02 23:43] VITALS: BP 115/79; PULSE 78; RESP 16; TEMP 36.6
[2023-05-02 23:53] LABS: HCG,Quantitative < 2 mIU/ml (0-5.42)
== END 2023-05-03 01:41 | disposition home or self-care (01) ==
PROVIDERS: Emergency Provider Emergency Medicine
DX: R53.83 Other fatigue (principal); T42.6X1A Poisoning by other antiepileptic and sedative-hypnotic drugs, accidental (unintentional), initial encounter; F10.10 Alcohol abuse, uncomplicated; F17.210 Nicotine dependence, cigarettes, uncomplicated
CPT/HCPCS: 80053; 80329; 84484; 84702; 85025; 87636; 93005; 93041; 99285; C9803; U0003; U0005

== ENCOUNTER 2024-08-10 01:27 | Emergency (ER) | payer BC, SELFPAY ==
[2024-08-10 01:27] VITALS: BP 155/99; PULSE 97; RESP 18; TEMP 37; O2SAT 97; BMI 27.4
--- NOTE | 2024-08-10 01:37 | HMH.EDGENADL ---
Discharge Plan Disposition Patient Disposition: Home, Self-Care Condition: Good Prescriptions Prescriptions: New ondansetron 4 mg tablet,disintegrating 4 mg PO Q6H PRN (Reason: nausea and vomiting) Qty: 10 0RF Referrals Follow up/Referrals: Provider,Referral, MD [Primary Care Provider] - See instructions Activity Restrictions/Add. Instructions Additional Instructions/Restrictions: You were evaluated in the ER and are appropriate for discharge at this time. Drink plenty of water, you can also drink Gatorade, Powerade, Pedialyte, or other electrolyte drinks. Take the prescribed Zofran as directed if needed for nausea and vomiting. Take Tylenol, ibuprofen if needed for pain. Do not exceed the recommended dose on the bottles. Make an appointment with your primary care doctor for reevaluation in 2 to 3 days to recheck your bilirubin and other labs. Return to the ER with new, worsening, or otherwise concerning symptoms. Clinical Impressions Clinical Impression: Nausea, vomiting, and diarrhea Instructions Patient Instructions: DI for Acute Abdominal Pain Print Language Print Language: Wolof Discharge ED Provider: Annie Ballesteros General Adult HPI General Chief complaint: Abdominal Pain Stated complaint: Vomiting Time Seen by Provider: 08/10/24 01:30 History of Present Illness HPI narrative: 39-year-old female who has previously had pancreatitis presents to the ER for complaints of diarrhea starting 24 hours ago, vomiting starting approximately 10 hours ago. Patient states she has vomited at least 11 times. Nonbloody, nonbilious, her diarrhea is nonbloody, nonmelanotic. She has tried taking Pepto for her symptoms but continues having emesis. She is also having mid abdominal pain. She states her symptoms are not as bad as when she had pancreatitis previously. She states she drank a single shot of alcohol multiple hours before her symptoms started. No fevers, chills, chest pain, difficulty breathing, sore throat, runny nose, or other associated symptoms. Other than Pepto, patient has not taken any other medications prior to arrival. Related Data Previous Rx's ?Medication ?Instructions ?Recorded ondansetron 4 mg disintegrating 4 mg PO Q6H PRN nausea and 08/10/24 tablet vomiting #10 tabs Allergies Allergy/AdvReac Type Severity Reaction Status Date / Time No Known Allergies Allergy Verified 08/21/22 09:26 [facility] Disclaimer: The information contained in this section may have been updated after the patient was seen, as this information can be updated by other users. Medical History Hepatitis C AA (alcohol abuse) IVDU (intravenous drug user) Social History (Updated 01/14/23 @ 23:43 by Justen Humphries RN) Smoking Status: Current every day smoker tobacco type: cigarettes packs per day: 1 alcohol intake: current alcohol intake frequency: holidays/special occasions only current occupational status: other Travel in the last 8 weeks: None ROS Obtained: Yes All systems reviewed & no additional complaints except as documented Positive ROS per HPI Physical Exam General General appearance: alert and in no apparent distress Head Head exam: atraumatic and normocephalic Eye Eye exam: Present PERRL and EOMI ENT ENT exam: Present mucous membranes moist Neck Neck exam: Present normal inspection and full ROM Chest Chest inspection: Present symmetric chest wall rise Respiratory Respiratory exam: Absent respiratory distress or stridor Cardiovascular Cardiovascular exam: Present regular rate and normal rhythm Abdominal Exam Abdominal exam: Present soft and tenderness (Mild epigastric abdominal pain); Absent distention, guarding, rebound or rigidity Extremities Exam Extremities exam: Present full ROM Neurological Exam Neurological exam: Present alert, oriented X3, CN II-XII intact and normal gait; Absent motor sensory deficit Psychiatric Psychiatric exam: Present normal affect and normal mood Skin Skin exam: Present warm and dry Medical Decision Making Medical Records Medical records reviewed: Yes I reviewed the patient's medical records. Screening: Per USPSTF and CDC recommendations, given the prevalence of disease in our region, it is our hospital?s policy to screen for HIV and viral Hepatitis for all patients aged 18 and over and those with ongoing risk factors. MR Comment: Patient is previously been admitted for pancreatitis in December 2022. Lipase at that time initially 692. Louie Inquiry Pt receiving controlled substance: No Vital Signs: 08/10/24 01:27 08/10/24 02:31 08/10/24 03:00 Temperature 98.6 F Temperature Source Oral Pulse Rate 84 79 Pulse Rate [Right Brachial] 97 H Respiratory Rate 18 Blood Pressure 139/88 136/88 Blood Pressure [Right Arm] 155/99 H Blood Pressure Mean [Right Arm] 117 Blood Pressure Source [Right Arm] Automatic Cuff Blood Pressure Position [Right Arm] Supine 02 Sat by Pulse Oximetry 97 98 97 Oxygen Delivery Method Room Air 08/10/24 03:31 Temperature Temperature Source Pulse Rate 87 Pulse Rate [Right Brachial] Respiratory Rate Blood Pressure 150/71 H Blood Pressure [Right Arm] Blood Pressure Mean [Right Arm] Blood Pressure Source [Right Arm] Blood Pressure Position [Right Arm] 02 Sat by Pulse Oximetry 96 Oxygen Delivery Method Lab Data Lab Results 08/10/24 01:48: WBC 7.5, RBC 4.35, Hgb 15.4, Hct 46.5, MCV 106.8 H, MCH 35.3 H, MCHC 33.0, RDW 15.9, Plt Count 242, MPV 9.9, Neut % (Auto) 88.1 H, Lymph % (Auto) 6.2 L, [place] % (Auto) 2.6, Eos % (Auto) 2.9, Baso % (Auto) 0.2, Neut # (Auto) 6.6, Lymph # (Auto) 0.5 L, [place] # (Auto) 0.2, Eos # (Auto) 0.2, Baso # (Auto) 0.0, Total Counted 100, Neutrophils % (Manual) 87 H, Lymphocytes % (Manual) 10, Monocytes % (Manual) 3, Platelet Estimate Normal, Macrocytosis 2+, Sodium 137, Potassium 4.1, Chloride 106, Carbon Dioxide 23, Anion Gap 12.1, BUN 12, Creatinine 0.80, Estimated Creat Clear 117, Estimated GFR 81, Est GFR ( Amer) 98, Glucose 133 H, Calcium 9.4, Total Bilirubin 1.7 H, AST 54 H, ALT 29, Alkaline Phosphatase 73, Total Protein 8.7 H, Albumin 5.0, Globulin 3.7 H, Albumin/Globulin Ratio 1.4, Lipase 119, Serum HCG, Qual Negative 08/10/24 01:48 08/10/24 01:48 Orders (Tests/Meds): ED MEDICATIONS Discontinued Medications Generic Name Dose Route Start Last Admin Trade Name Freq PRN Reason Stop Dose Admin Acetaminophen 1,000 mg 08/10/24 02:21 08/10/24 02:24 Acetaminophen 1,000mg/100ml Vial IV 08/10/24 02:22 1,000 mg ONCE ONE Administration Lactated Ringer's 1,000 mls @ 999 mls/hr 08/10/24 01:30 08/10/24 01:46 Lactated Ringer's 1000 Ml Bag IV 08/10/24 02:30 999 mls/hr .Q1H1M ONE Administration Ketorolac Tromethamine 30 mg 08/10/24 02:21 08/10/24 02:24 Ketorolac 30mg/Ml Vial IV 08/10/24 02:22 30 mg ONCE ONE Administration Ondansetron HCl 4 mg 08/10/24 01:30 08/10/24 01:46 Ondansetron 4mg/2ml Vial IV 08/10/24 01:31 4 mg ONCE ONE Administration ORDERS Category Date Time Status CBC w/Auto Diff [Complete Blood Count Auto Diff] Stat Lab 08/10/24 01:48 Completed CMP [Comprehensive Metabolic Panel] Stat Lab 08/10/24 01:48 Completed HCG Qualitative, Serum Stat Lab 08/10/24 01:48 Completed HIV (1&2) Antibody Rapid Stat Lab 08/10/24 01:48 Received Hep C Ab with Reflex to RNA Stat Lab 08/10/24 01:48 Received Lipase Stat Lab 08/10/24 01:48 Completed Medical Decision Narrative: In summary, this 39-year-old female with medical problems as documented above presents to the emergency department today with vomiting and diarrhea. On initial evaluation patient is mildly tachycardic but otherwise hemodynamically stable, afebrile, mild mid epigastric abdominal pain to palpation without rebound or guarding, nonacute abdomen, pain does not radiate to the back. Differential diagnosis includes but is not limited to viral syndrome, electrolyte abnormality, dehydration, kidney dysfunction, , pancreatitis, I considered the possibility of cholecystitis however patient does not have right upper quadrant pain or tenderness, considered appendicitis but patient does not have right lower quadrant pain or tenderness. Symptoms are most consistent with viral syndrome. Based on these concerns, I ordered serum labs including test. Patient received IV fluids, Zofran for treatment. Labs personally reviewed demonstrate no leukocytosis or anemia, platelets normal, CMP demonstrates mild hyperbilirubinemia which is likely related to patient's known history of hepatitis C. AST to ALT elevation 2-1 consistent with alcohol use which is also another known factor of patient's history. test negative. Patient was having aching abdominal pain so Toradol, acetaminophen were administered. On reassessment after conservative management, patient has had significant improvement of symptoms and is resting more comfortably. She has tolerated oral intake and not had any emesis in the ER. I believe she is appropriate for discharge and she is comfortable with this plan. Patient was prescribed Zofran for outpatient management. Patient was given instructions on symptomatic management, follow up instructions to recheck labs with her PCP, and return precautions for the emergency department. Patient indicated understanding and was discharged in stable condition. Critical Care Critical Care Time Critical Care Time: No
[2024-08-10] MEDS: LACTATED RINGERS 1000ML 1,000 ML 999 ML IV (01:46)
[2024-08-10] MEDS: ONDANSETRON 4MG/2ML VIAL 4 MG IV (01:46)
[2024-08-10 01:59] LABS: Basophils % 0.2 % (0.1-2.0); Eosinophils # 0.2 K/mm3 (0.0-0.4); Eosinophils % 2.9 % (0.1-12.0); Hematocrit 46.5 % (37.0-47.0); Hemoglobin 15.4 g/dL (12.2-16.2); Lymphocytes # 0.5 K/mm3 (0.7-4.5); Lymphocytes % 6.2 % (10-50); Mean Corpuscular Hemoglobin 35.3 pg (27.0-31.2); Mean Corpuscular Volume 106.8 fl (81-99); Mean Platelet Volume 9.9 fl (7.4-10.4); Monocytes # 0.2 K/mm3 (0.1-1.0); Monocytes % 2.6 % (1.7-9.3); Neutrophils # 6.6 K/mm3 (1.8-7.8); Neutrophils % 88.1 % (37.0-80.0); Platelet Count 242 K/mm3 (142-424); Red Blood Count 4.35 M/mm3 (4.20-5.40); Red Cell Distribution Width 15.9 % (11.5-17.5); White Blood Count 7.5 K/mm3 (4.8-10.8)
[2024-08-10 02:01] LABS: MANUAL DIFFERENTIAL MANUAL DIFFERENTIAL (MANUAL DIFF)
[2024-08-10 02:04] LABS: Chloride 106 mmol/L (98-107); Potassium 4.1 mmoL/L (3.5-5.1); Sodium 137 mmol/L (136-145)
[2024-08-10 02:06] LABS: Alanine Aminotransferase 29 U/L (12-78); Aspartate Amino Transferase 54 U/L (14-36); Blood Urea Nitrogen 12 mg/dl (7-17); Creatinine Clearance Estimated 117 mL/min (50-200); Estimated Glomerular Filt Rate 81 ml/min (>60); GFR (African American) 98 ML/MIN (>60)
[2024-08-10 02:07] LABS: Albumin/Globulin Ratio 1.4 (1.1-1.8); Alkaline Phosphatase 73 U/L (38-126); Anion Gap 12.1 mEq/L (5-15); Bilirubin,Total 1.7 mg/dl (0.2-1.3); Calcium 9.4 mg/dl (8.4-10.2); Carbon Dioxide 23 mmol/L (22.0-30.0); Globulin 3.7 g/dL (1.3-3.2); Glucose 133 mg/dl (74-100); Lipase 119 U/L (23-300); Total Protein,Serum 8.7 g/dl (6.3-8.2)
[2024-08-10 02:13] LABS: HCG Qualitative, Serum Negative (Negative)
[2024-08-10] MEDS: KETOROLAC 30MG/ML VIAL 30 MG IV (02:24)
[2024-08-10] MEDS: ACETAMINOPHEN 1,000MG/100ML VIAL 1000 MG IV (02:24)
[2024-08-10 02:31] VITALS: BP 139/88; PULSE 84; O2SAT 98
[2024-08-10 02:59] LABS: Lymphocytes % 10 % (10-50); Monocytes % 3 % (2-9); Neutrophils % 87 % (42-76); Platelet Estimate Normal; Total Cells Counted 100
[2024-08-10 03:00] VITALS: BP 136/88; PULSE 79; O2SAT 97
[2024-08-10 03:00] LABS: Macrocytosis 2+
[2024-08-10 03:31] VITALS: BP 150/71; PULSE 87; O2SAT 96
[2024-08-10 03:50] VITALS: BP 150/71; PULSE 87; RESP 18; TEMP 37.1; O2SAT 99
[2024-08-10 08:27] LABS: HIV (1&2) Antibody Rapid NONREACTIVE (NONREACTIVE)
== END 2024-08-10 03:54 | disposition home or self-care (01) ==
PROVIDERS: Emergency Provider Emergency Medicine
DX: R11.2 Nausea with vomiting, unspecified (principal); R19.7 Diarrhea, unspecified
CPT/HCPCS: 80053; 83690; 84703; 85007; 85025; 85027; 87389; 96361; 96374; 96375; 99284; J0131; J1885; J2405; J7120

== ENCOUNTER 2024-11-18 12:44 | Emergency (ER) | payer OTHER, SELFPAY ==
--- NOTE | 2024-11-18 13:48 | EXP.UTC ---
Discharge Plan Disposition Patient Disposition: Home, Self-Care Condition: Good Prescriptions Prescriptions: New azithromycin [Zithromax] 250 mg tablet 250 mg PO UD DOSE PK Qty: 6 0RF Rx Instructions: Take two (2) tablets today, then one (1) tablet days #2 thru #5 benzonatate 100 mg capsule 100 mg PO TIDP PRN (Reason: Cough) Qty: 30 0RF methylprednisolone 4 mg Tablets,Dose Pack 4 mg PO DIRECTED 6 Days Qty: 21 0RF Rx Instructions: Take 1 pack as directed for 6 days Referrals Follow up/Referrals: Provider,Referral, MD [Primary Care Provider] - See instructions Activity Restrictions/Add. Instructions Additional Instructions/Restrictions: Drink plenty of fluids. Take tylenol or ibuprofen for pain or fever. Take the medications as directed. Follow up with your regular doctor. GO TO THE ER FOR ANY WORSENING SYMPTOMS Clinical Impressions Clinical Impression: Acute bronchitis, Sinusitis Instructions Patient Instructions: Sinusitis, DI for Sinusitis Print Language Print Language: Croatian Discharge ED Provider: Jann Alicea [facility] General Stated complaint: cough, diarrhea Time Seen by Provider: 11/18/24 13:48 History of Present Illness Provider Complaint: She states for the past 7 day she has had worsening cough, chest congestion, and sinus congestion. Related Data Previous Rx's ?Medication ?Instructions ?Recorded azithromycin 250 mg tablet 250 mg PO UD DOSE PK #6 tabs 11/18/24 (Zithromax) benzonatate 100 mg capsule 100 mg PO TIDP PRN Cough #30 caps 11/18/24 methylprednisolone 4 mg tablets in 4 mg PO DIRECTED 6 days #21 tabs 11/18/24 a dose pack Allergies Allergy/AdvReac Type Severity Reaction Status Date / Time No Known Allergies Allergy Verified 08/21/22 09:26 [facility] Disclaimer: The information contained in this section may have been updated after the patient was seen, as this information can be updated by other users. Medical History Hepatitis C AA (alcohol abuse) IVDU (intravenous drug user) Social History (Updated 01/14/23 @ 23:43 by Justen Humphries RN) Smoking Status: Current every day smoker tobacco type: cigarettes packs per day: 1 alcohol intake: current alcohol intake frequency: holidays/special occasions only current occupational status: other Travel in the last 8 weeks: None Have you lived/traveled outside [place] in past 30 days?: No Contact w/someone who lives/traveled outside US past 30 days?: No Exposure to someone with infectious disease in past 14 days?: No Do you have a fever (greater than 100.4 F or 38 C)?: No Have you tested positive for COVID-19: No Exposed to someone with COVID-19 in past 14 days?: No Do you have a sore throat?: No Do you have a cough?: Yes Do you have any weakness?: No Do you have any diarrhea?: Yes Are you experiencing any unusual bleeding?: No Do you have any muscle aches/pain?: No Do you have any abdominal pain?: No Are you experiencing loss of taste or smell?: No ROS Obtained: Yes All systems reviewed & no additional complaints except as documented Constitutional Constitutional: Reports poor appetite Eyes Eyes: Reports system reviewed and no additional complaints, except as documented ENT Ears, Nose, Mouth, and Throat: Reports as per HPI Cardiovascular Cardiovascular: Reports system reviewed and no additional complaints, except as documented and Denies chest pain Respiratory Respiratory: Denies shortness of breath, Reports chest congestion, Reports cough, Denies stridor and Denies wheezing Gastrointestinal Gastrointestingal: Reports system reviewed and no additional complaints, except as documented; Denies abdominal pain, diarrhea or vomiting Musculoskeletal Musculoskeletal: Reports system reviewed and no additional complaints, except as documented and Denies arthralgias Integumentary/Breasts Skin/Breast: Reports system reviewed and no additional complaints, except as documented and Denies rash Neurologic Neurologic: Denies paresthesias Allergic/Immunologic Allergic/Immunologic: Denies wheezing Physical Exam General General appearance: alert and in no apparent distress Eye Eye exam: Present normal appearance, PERRL and EOMI ENT ENT exam: Present mucous membranes moist and normal external ear exam Expanded ENT Exam External ear exam: Present normal external inspection TM/Canal exam: Bilateral TM: erythema and bulging Nose exam: Absent sinus tenderness Nasal speculum exam: Bilateral: normal Mouth exam: Present normal external inspection; Absent drooling Teeth exam: Present normal inspection Throat exam: Present tonsillar erythema and tonsillomegaly Neck Neck exam: Present normal inspection, full ROM and trachea midline; Absent tenderness, lymphadenopathy or thyromegaly Chest Chest inspection: Present normal inspection and symmetric chest wall rise; Absent tenderness or rash Respiratory Respiratory exam: Present normal lung sounds bilaterally; Absent respiratory distress, wheezes, stridor or accessory muscle use Cardiovascular Cardiovascular exam: Present regular rate, normal rhythm and normal heart sounds Abdominal Exam Abdominal exam: Present soft; Absent distention, tenderness, guarding, rebound or rigidity Extremities Exam Extremities exam: Present normal inspection, full ROM and normal capillary refill; Absent tenderness or calf tenderness Back Exam Back exam: Present normal inspection and full ROM; Absent tenderness Neurological Exam Neurological exam: Present alert and oriented X3 Psychiatric Psychiatric exam: Present normal affect and normal mood Skin Skin exam: Present warm, dry, intact and normal color Lymphatic Lymphatic Findings: no adenopathy Medical Decision Making Medical Records Medical records reviewed: No I reviewed the patient's medical records. Screening: Per USPSTF and CDC recommendations, given the prevalence of disease in our region, it is our hospital?s policy to screen for HIV and viral Hepatitis for all patients aged 18 and over and those with ongoing risk factors. Louie Inquiry Pt receiving controlled substance: No Lab Data Lab results reviewed: Yes I reviewed the patient's lab results.
[2024-11-18 13:49] VITALS: BP 145/58; PULSE 81; RESP 20; TEMP 36.9; O2SAT 97; BMI 30.8
[2024-11-18 14:13] VITALS: BP 145/58; PULSE 81; RESP 20; TEMP 36.9
== END 2024-11-18 14:15 | disposition home or self-care (01) ==
PROVIDERS: Emergency Provider Nurse Practitioner Family
DX: J20.9 Acute bronchitis, unspecified (principal); J01.90 Acute sinusitis, unspecified; R05.9 Cough, unspecified; R09.81 Nasal congestion; R63.8 Other symptoms and signs concerning food and fluid intake
CPT/HCPCS: 99212; G0381

== ENCOUNTER 2025-03-25 15:03 | Outpatient (CLI) | payer OTHER, SELFPAY ==
--- NOTE | 2025-03-25 15:00 | US_ITS ---
FINAL REPORT TECHNIQUE: Sonographic images of the thyroid gland were obtained in the longitudinal and transverse planes. CLINICAL HISTORY: thyroid nodules FINDINGS: The right lobe measures 1.7 x 4.8 x 1.5 cm. The right lobe is homogeneous. There is a 9 mm mixed cystic and solid nodule in the lower pole consistent with TR 3. There is a second predominantly isoechoic mixed cystic and solid lesion in the mid thyroid measuring 9 mm. The left lobe measures 1.7 x 4.5 x 1.5 cm. The left lobe is homogeneous. There is a subcentimeter mixed cystic and solid nodule in the lower pole. The isthmus measures 3 mm. This is normal. IMPRESSION: 1. TIRADS category 3 nodules bilaterally. Based on size, there are no current recommendations regarding follow up. Reviewed, Interpreted and Dictated by Tiffanie Mireles MD Transcribed by Lynnette Moreira Authenticated and [facility]
--- NOTE | 2025-03-25 15:15 | XR_ITS ---
FINAL REPORT CLINICAL HISTORY: right si joint pain FINDINGS: 3 views were obtained. There is no fracture or dislocation. There is sacroiliac degenerative change. There is no ankylosis. There are no bony erosions. IMPRESSION: Mild degenerative change of the SI joints without acute finding. No ankylosis or bony erosions. Reviewed, Interpreted and Dictated by Tiffanie Mireles MD Transcribed by BARB Price Authenticated and [facility]
--- NOTE | 2025-03-25 15:15 | XR_ITS ---
FINAL REPORT CLINICAL HISTORY: low back pain FINDINGS: AP and lateral views of the lumbar spine were obtained. There is no prior exam for comparison. There is no acute fracture or malalignment. Vertebral body height is preserved. Disc space height is preserved. No acute paraspinal abnormality. IMPRESSION: No acute osseous abnormality of the lumbar spine. Reviewed, Interpreted and Dictated by Tiffanie Mireles MD Transcribed by BARB Price Authenticated and [facility]
[2025-03-25 16:04] LABS: Basophils # 0.1 K/mm3 (0-0.2); Basophils % 0.6 % (0.1-2.0); Eosinophils # 0.1 Kmm3 (0.0-0.4); Eosinophils % 1.1 % (0.1-12.0); Hematocrit 36.6 % (37.0-47.0); Hemoglobin 12.9 g/dL (12.2-16.2); Immature Granulocytes # 0.04 10^3uL; Immature Granulocytes % 0.5 %; Lymphocytes # 2.2 K/mm3 (0.7-4.5); Lymphocytes % 27.4 % (10-50); Mean Corpuscular HGB Conc 35.2 g/dL (31.8-35.4); Mean Corpuscular Hemoglobin 35.7 pg (27.0-31.2); Mean Corpuscular Volume 101.4 fl (81-99); Monocytes # 0.6 K/mm3 (0.1-1.0); Monocytes % 7.1 % (1.7-9.3); Neutrophils # 5.2 K/mm3 (1.8-7.8); Neutrophils % 63.3 % (37.0-80.0); Nucleated Red Blood Cells # 0 10^3/uL; Nucleated Red Blood Cells % 0 %; Platelet Count 263 K/mm3 (142-424); Red Blood Count 3.61 M/mm3 (4.20-5.40); Red Cell Distribution Width 15.1 % (11.5-17.5); Red Cell Distribution Width-SD 56.2 fL; White Blood Count 8.2 K/mm3 (4.8-10.8)
[2025-03-25 16:34] LABS: INR 1.01 (0.9-1.1); Prothrombin Time 11.3 seconds (10.1-12.5)
[2025-03-25 16:48] LABS: HCG Qualitative, Serum Negative (Negative)
[2025-03-25 19:07] LABS: Albumin Level 4.6 g/dl (3.5-5.0); Chloride 106 mmol/L (98-107)
[2025-03-25 19:08] LABS: Sodium 134 mmol/L (136-145)
[2025-03-25 19:10] LABS: Alanine Aminotransferase 32 U/L (12-78); Albumin/Globulin Ratio 1.7 (1.1-1.8); Alkaline Phosphatase 70 U/L (38-126); Aspartate Amino Transferase 44 U/L (14-36); Bilirubin,Total 0.8 mg/dl (0.2-1.3); Blood Urea Nitrogen 11 mg/dl (7-17); Carbon Dioxide 24 mmol/L (22.0-30.0); Cholesterol 291 mg/dl (140-200); Estimated Glomerular Filt Rate 94 ml/min (>60); GFR (African American) 113 ML/MIN (>60); Globulin 2.7 g/dL (1.3-3.2); Total Protein,Serum 7.3 g/dl (6.3-8.2); Triglycerides 246 mg/dl (30-150); VLDL Cholesterol 49 mg/dL (0-40)
[2025-03-25 19:11] LABS: Calcium 9.7 mg/dl (8.4-10.2); Chol/HDL Ratio 5.3 (1-3.5); Glucose 89 mg/dl (74-100); HDL Cholesterol 55 mg/dl (40-60)
[2025-03-25 19:24] LABS: Free Thyroxine Index 2.8 ug/dL (5.93-13.13); T4 (Thyroxine) 8.5 ug/dl (5.53-11.0); Triiodothryronine (T3) Uptake 33 % (23.5-40.5)
[2025-03-25 19:37] LABS: Thyroid Stimulating Hormone 1.01 uIU/mL (0.465-4.68)
[2025-03-25 19:42] LABS: 25-OH Vitamin D, Total < 12.8 ng/mL (30-100)
[2025-03-26 05:08] LABS: Hep A Ab, IgM Negative (Negative); Hep A Ab, Total Positive (Negative); Hep B Core Ab, Total Negative (Negative); Hep B Surface Ab, Qual Non Reactive (.); Hepatitis B Surface Antigen Negative (Negative)
[2025-03-26 09:38] LABS: Hepatitis C Ab Qual. W/ RFX REACTIVE (Negative)
[2025-03-27 05:14] LABS: ALT (SGPT) P5P 34 IU/L (0-40); Alpha 2-Macroglobulins, Qn 180 mg/dL (110-276); Apolipoprotein A-1 169 mg/dL (116-209); Bilirubin, Total 0.5 mg/dL (0.0-1.2); Fibrosis Score 0.13 (0.00-0.21); GGT 120 IU/L (0-60); Haptoglobin 163 mg/dL (33-278); Necroinflammat Activity Grade A0-No activity (.); Necroinflammat Activity Score 0.14 (0.00-0.17)
[2025-03-29 21:08] LABS: Hepatitis C Genotype 2b (.)
== END 2025-03-25 23:59 | disposition home or self-care (01) ==
LOC: RAD 15:04
PROVIDERS: PCP Family Medicine; Visit Provider Family Medicine
DX: Z00.00 Encounter for general adult medical examination without abnormal findings (principal); E04.2 Nontoxic multinodular goiter; M19.09 Primary osteoarthritis, other specified site; M46.1 Sacroiliitis, not elsewhere classified; M54.9 Dorsalgia, unspecified; B19.20 Unspecified viral hepatitis C without hepatic coma
CPT/HCPCS: 36415; 72100; 72202; 76536; 80053; 80061; 81517; 82172; 82247; 82306; 82977; 83010; 83036; 83883; 84436; 84443; 84460; 84479; 84703; 85025; 85610; 86704; 86706; 86708; 86803; 87340; 87522; 87902

== ENCOUNTER 2025-06-04 11:16 | Outpatient (CLI) | payer OTHER, SELFPAY ==
[2025-06-04 08:06] VITALS: BMI 29.7
--- OUTSIDE RECORDS SUMMARY | 2025-06-04 11:19 | XMS_ITS | Clinical Summary ---
Author Organization Healthcare Address [address] [place] [address] Care Team Providers Care Precision Inspector Name Role Phone Unavailable Primary Care Provider Unavailabl e Immunizations Immunization Administration Dates Next Due Hep A, Adult 10/05/2014 Hep A, Unspecified 04/06/2014 Family History Medical History Relation Name Comments Cancer Mother Hyperthyroidism Mother Relation Name Status Comments Mother Social History Tobacco Use Types Packs/Day Years Used Date Smoking Tobacco: Former Alcohol Use Standard Drinks/Week Comments Not Currently 0 (1 standard drink = 0.6 oz pure alcohol) Alcoholic Drinks/day: History of alcohol use Comments Unknown Sex and Gender Information Value Date Recorded Sex Assigned at Not on file Legal Sex Female 6:08 PM EDT Gender Identity Not on file Sexual Orientation Not on file Last Filed Vital Signs Vital Sign Reading Time Taken Comments Blood Pressure - - Pulse - - Temperature - - Respiratory Rate - - Oxygen Saturation - - Inhaled Oxygen Concentration - - Weight 69.8 kg (153 lb 15.9 oz) 014 11:25 AM EST Height 167.6 cm (5' 6 ) 10/05/2014 11:2 5 AM EST Body Mass Index 24.85 10/05/2014 11:25 AM EST Plan of Treatment Not on file
[2025-06-04 12:12] LABS: Chloride 106 mmol/L (98-107); Sodium 135 mmol/L (136-145)
[2025-06-04 12:13] LABS: Potassium 3.7 mmoL/L (3.5-5.1)
[2025-06-04 12:16] LABS: Anion Gap 11.7 mEq/L (5-15); Blood Urea Nitrogen 9 mg/dl (7-17); Calcium 8.8 mg/dl (8.4-10.2); Carbon Dioxide 21 mmol/L (22.0-30.0); Creatinine Clearance Estimated 173 mL/min (50-200); Creatinine,Serum 0.60 mg/dl (0.52-1.04); Estimated Glomerular Filt Rate 112 ml/min (>60); GFR (African American) 135 ML/MIN (>60); Glucose 92 mg/dl (74-100); Urine Pregnancy, HCG Qual. Negative (Negative)
== END 2025-06-04 23:59 | disposition home or self-care (01) ==
LOC: PREOP 11:16
PROVIDERS: PCP Family Medicine; Visit Provider Surgery
DX: Z01.812 Encounter for preprocedural laboratory examination (principal)
CPT/HCPCS: 80048; 81025

== ENCOUNTER 2025-06-10 08:40 | Day surgery (SDC) | payer OTHER, SELFPAY ==
[2025-06-04 13:20] VITALS: BMI 29.7
[2025-06-10] VITALS (11 sets, daily range): BP systolic 121–140; BP diastolic 63–89; PULSE 71–89; RESP 16–18; TEMP 36.1–36.8; O2SAT 95–100
[2025-06-10 09:01] LABS: Hematocrit 38.2 % (37.0-47.0); Hemoglobin 13.4 g/dL (12.2-16.2); Immature Granulocytes % 0.3 %; Mean Corpuscular HGB Conc 35.1 g/dL (31.8-35.4); Mean Corpuscular Hemoglobin 34.1 pg (27.0-31.2); Mean Corpuscular Volume 97.2 fl (81-99); Nucleated Red Blood Cells % 0 %; Platelet Count 353 K/mm3 (142-424); Red Blood Count 3.93 M/mm3 (4.20-5.40); Red Cell Distribution Width-SD 51.2 fL; White Blood Count 6.6 K/mm3 (4.8-10.8)
--- NOTE | 2025-06-10 09:07 | P.PNANES_ITS ---
[facility] Disclaimer: The information contained in this section may have been updated after the patient was seen, as this information can be updated by other users. Medical History Blood-alcohol level elevation Overdose Nausea, vomiting, and diarrhea Acute bronchitis Sinusitis Hepatitis C AA (alcohol abuse) IVDU (intravenous drug user) Surgical History History of breast implant Family History Other Family history of thyroid disease Social History Smoking Status: Current every day smoker tobacco type: cigarettes packs per day: 1 alcohol intake: current alcohol intake frequency: holidays/special occasions only substance use type: denies use current occupational status: unemployed Travel in the last 8 weeks?: None [facility] Anesthesia Checklist Patient Identification Patient Identification: Arm Band Structural Data Admitted From: Home Planned Operative Procedure/s: Laparoscopic Umbilical Hernia Repair Consent for Planned Operative Procedure(s) Verified: Yes Verified Documents: Surgical Consent and History and Physical NPO Status Verified Time NPO: 00:00 Additional verifications Anesthesia Reactions: No Hx Blood Transfusions: No Blood Transfusion Reaction: No Airway Assessment Mallampati Score:: Class II C-Spine Mobility Assessed: Yes TMJ Mobility Assessed: Yes Dentition: Good Dentition Neurological Assessment Level of Consciousness: Awake, Alert and Appropriate Anesthesia Plan Anesthesia Risk discussed: Yes Anesthesia Plan: Verified ASA Class: II Anesthesia Type: General
[2025-06-10] MEDS: 0.9 % SODIUM CHLORIDE 1000ML 1,000 ML 25 ML IV (09:08)
[2025-06-10] MEDS: LIDOCAINE 1% 20ML MDV 20 ML (09:35)
--- NOTE | 2025-06-10 11:09 | P.OP_ITS ---
Date of procedure: 06/10/25 Pre-op Diagnosis:: Umbilical hernia Supraumbilical hernia Post-op Diagnosis:: Umbilical hernia with 2 cm defect and incarcerated preperitoneal fat Supraumbilical hernia with 1 cm defect and incarcerated preperitoneal fat Procedure performed:: Laparoscopic-assisted open repair of umbilical hernia with a 6.4 cm Ventralex mesh Open primary repair supraumbilical hernia Surgeon:: Parish Ann MD CENTRAL OFFICE SUPERVISOR:: Jann Pena Anesthesia: GETA and local Estimated blood loss (mL): 15 Operative findings:: 2 cm umbilical defect with incarcerated preperitoneal fat 1 cm supraumbilical defect with incarcerated preperitoneal fat Operative note:: After informed consent was obtained the patient was taken to the operating room and placed in the supine position. General anesthesia was induced and her ab domen was prepped and draped in a sterile fashion after infiltration with local anesthetic a Veress needle was placed in the left upper quadrant. The abdomen was insufflated. A 5 mm optical trocar was placed in position in the left mid flank. Evaluation revealed an umbilical defect with incarcerated preperitoneal fat. An infraumbilical/curvilinear incision was made sharply. The deep subcutaneous tissue was dissected with a combination of sharp dissection and electrocautery. The umbilical stump was transected. A 2 cm defect was encountered. Incarcerated preperitoneal fat was removed. A 6.4 cm Ventralex mesh was placed in position and secured with interrupted 0 Ethibond. Primary closure with interrupted 0 Ethibond was then made overlying the mesh. The umbilical stump was reapproximated with interrupted Vicryl suture. Reevaluation laparoscopically with closer inspection revealed likely incarcerated preperitoneal fat at a supraumbilical herniation site. An incision was made ov erlying this defect (1 cm defect was encountered). Preperitoneal fat was excised. The defect was then reapproximated with interrupted 0 Ethibond. Skin at both sites was closed with interrupted 4-0 Monocryl in an interrupted mattress fashion to facilitate hemostasis. Reintroduction of the laparoscope utilizing an additional 5 mm trocar at the original Veress needle insertion site was utilized to allow for circumferential OPTi fix tack placement at Ventralex umbilical repair site. Pneumoperitoneum was released and trocars were removed. Trocar site skin was reapproximated with Mastisol/Steri-Strips. Dressings were applied and the patient was transferred to recovery in stable condition after extubation. Condition: stable Disposition: PACU Specimens:: None Complications:: No immediate
--- NOTE | 2025-06-10 11:20 | P.PNANES_ITS ---
[facility] Anesthesia Record Part I Anesthesia Record I Intake, IV Amount: 750 Hydration: Adequate Estimated blood loss (mL): 15 Urine output (mL): 100 Blood Products used (#): none Blood Pressure: 140/76 SaO2: 100 Pulse Rate: 89 Airway Patency: Patent Respiratory Rate: 16 Temperature: 98.2 F Patient is:: Stable Stable to PACU at:: 11:15
[2025-06-10] MEDS: HYDROMORPHONE 2MG/ML SYRINGE 0.5 MG IV ×2 (11:29→11:43)
[2025-06-10] MEDS: ONDANSETRON 4MG/2ML VIAL 4 MG IV (11:43)
--- NOTE | 2025-06-10 13:36 | EXP.ANES.II ---
[facility] Anesthesia Record Part II Anesthesia Record Part II Discharge Time: 11:50 Destination: Surgical Day Care (OP Surgery) PACU nurse assessment reviewed?: Yes Patient Condition:: Good Anesthesia Complications:: None Swallowing reflex intact?: Yes Airway Patency: Patent Cyanosis?: No Blood Pressure: 128/63 SaO2: 98 Respiratory Rate: 18 Pulse Rate: 77 Temperature: 97.2 F Mental Status: Alert & Oriented Pain level:: 3 Nausea and/or vomitting:: None Intake, IV Amount: 0 Hydration: Adequate
== END 2025-06-10 12:11 | disposition home or self-care (01) ==
PROVIDERS: PCP Family Medicine; Visit Provider Surgery
PROC: 0WQF4ZZ Repair Abdominal Wall, Percutaneous Endoscopic Approach (ICD-10-PCS; CPT 49592; principal; 2025-06-10 10:00)
DX: K42.0 Umbilical hernia with obstruction, without gangrene (principal); K43.6 Other and unspecified ventral hernia with obstruction, without gangrene; F17.210 Nicotine dependence, cigarettes, uncomplicated; Z79.899 Other long term (current) drug therapy
CPT/HCPCS: 49592; 85025; 96374; C1781; J0690; J1100; J1171; J2003; J2250; J2405; J2704; J3010; J7030